=== PATIENT | female | born 1980 | race Caucasian/White ===

== ENCOUNTER 2017-05-26 10:54 | Emergency (ER) | payer OTHER ==
[2017-05-26 11:05] VITALS: BP 129/70; PULSE 82; O2SAT 98
--- NOTE | 2017-05-26 11:20 | ERPHSYRPT ---
- History of Present Illness Time Seen by Provider: 05/26/17 11:16 Historian: patient, family Exam Limitations: no limitations Patient Subjective Stated Complaint: PT REPORTS SHE HAD TEETH PULLED A COUPLE OF DAYS AGO-STATES THAT SHE TOOK A HYDROCODONE TABLET ET VOMITED-TOOK ONE YESTERDAY ET VOMITED-STATES THAT SHE HAS BEEN PUSHING FLUIDS Triage Nursing Assessment: PT PINK WARM ET [id number] ALL EXTREMITIES WITH EASE-RESP EASY ET NONLABORED AT THIS TIME-ABD NONTENDER TO PALP Physician History: 36-year-old female came to the emergency room with complaining of severe nausea and vomiting. Patient has a tooth pulled and was given hydrocodone which she too can started having a nausea and vomiting. She denies any other symptoms. Timing/Duration: today Associated Symptoms: nausea, vomiting Allergies/Adverse Reactions: penicillin G Allergy (Intermediate, Verified 05/26/17 11:11) Hives Home Medications: Hydrocodone Bit/Acetaminophen [[place] 5-325 Tablet] 1 each PO UD 05/26/17 [ History] Hx Tetanus, Diphtheria Vaccination/Date Given: No Hx Influenza Vaccination/Date Given: No Hx Pneumococcal Vaccination/Date Given: No Immunizations Up to Date: Yes - Review of Systems Constitutional: No Symptoms Eyes: No Symptoms Ears, Nose, & Throat: Mouth Swelling, Loose Teeth Respiratory: No Symptoms Cardiac: No Symptoms Abdominal/Gastrointestinal: Nausea, Vomiting Genitourinary Symptoms: No Symptoms Musculoskeletal: No Symptoms Neurological: No Symptoms - Past Medical History Pertinent Past Medical History: Yes Endocrine Medical History: Diabetes Type II Musculoskeletal History: Fibromyalgia Psycho-Social History: Bipolar, Depression Other Medical History: POLYCISTIC OVARY - Past Surgical History Past Surgical History: Yes Female Surgical History: Section, Tubal Ligation - Social History Smoking Status: Current every day smoker How long have you smoked: YRS Exposure to second hand smoke: Yes Drug Use: none Patient Lives Alone: No - Female History Hx Last Menstrual Period: LAST MONTH - Nursing Vital Signs Nursing Vital Signs: Initial Vital Signs Temperature 99.3 F 05/26/17 11:04 Pulse Rate 82 05/26/17 11:04 Respiratory Rate 20 05/26/17 11:04 Blood Pressure 129/70 05/26/17 11:04 O2 Sat by Pulse Oximetry 98 05/26/17 11:04 Pain Scale Pain Intensity 8 - Physical Exam General Appearance: no apparent distress Eye Exam: PERRL/EOMI Ears, Nose, Throat Exam: normal ENT inspection Neck Exam: normal inspection Respiratory Exam: normal breath sounds Cardiovascular Exam: regular rate/rhythm Gastrointestinal/Abdomen Exam: soft Back Exam: normal inspection Extremity Exam: normal inspection Neurologic Exam: alert, oriented x 3 SpO2: 98 Oxygen Delivery: Room Air - Course Nursing assessment & vital signs reviewed: Yes Ordered Tests: Active Orders 24 hr Category Date Time Status BMP Stat Lab 05/26/17 11:50 Received CBC W DIFF Stat Lab 05/26/17 11:50 Completed Medication Summary Generic Name Dose Route Start Last Admin Trade Name Freq PRN Reason Stop Dose Admin Sodium Chloride 1,000 mls @ 999 mls/hr 05/26/17 11:30 05/26/17 11:41 Sodium Chloride 0.9% 1000 Ml IV 05/26/17 12:30 999 mls/hr .Q1H1M STA Administration Ketorolac Tromethamine 30 mg 05/26/17 12:05 Toradol 30 Mg Injection IV 05/26/17 12:06 STAT ONE Discontinued Medications Generic Name Dose Route Start Last Admin Trade Name Freq PRN Reason Stop Dose Admin Sodium Chloride Confirm 05/26/17 11:37 Sodium Chloride 0.9% 1000 Ml Administered 05/26/17 11:38 Dose 1,000 mls @ ud .ROUTE .STK-MED ONE Ondansetron HCl 4 mg 05/26/17 11:30 05/26/17 11:41 Zofran 4 Mg/2 Ml Vial IV 05/26/17 11:31 4 mg STAT ONE Administration Ondansetron HCl Confirm 05/26/17 11:37 Zofran 4 Mg/2 Ml Vial Administered 05/26/17 11:38 Dose 4 mg .ROUTE .STK-MED ONE Lab/Rad Data: Laboratory Result Diagrams 05/26/17 11:50 Laboratory Results 05/26/17 Range/Units 11:50 WBC 9.0 (4.0-10.5) K/mm3 RBC 4.23 (4.1-5.4) M/mm3 Hgb 13.9 (12.0-16.0) gm/dl Hct 39.8 (35-47) % MCV 94.1 (78-100) fl MCH 32.9 H (26-32) pg MCHC 34.9 (32-36) g/dl RDW 12.0 (11.5-14.0) % Plt Count 235 (150-450) K/mm3 MPV 11.1 H (6-9.5) fl Gran % 81.6 H (36.0-66.0) % Lymphocytes % 9.2 L (24.0-44.0) % Monocytes % 7.0 (0.0-12.0) % Eosinophils % 2.0 (0.00-5.0) % Basophils % 0.2 (0.0-0.4) % Basophils # 0.02 (0-0.4) - Progress Progress: improved Counseled pt/family regarding: diagnosis, need for follow-up - Departure Time of Disposition: 12:07 Departure Disposition: Home Clinical Impression: Tooth abscess Condition: Stable Critical Care Time: No Referrals: MONICA NUNN MD [Primary Care Provider] - Instructions: Vomiting -- Adult Prescriptions: Clindamycin HCl 150 mg PO QID #30 capsule Naproxen 500 mg [Naprosyn 500 MG] 500 mg PO BIDAC #30 tablet
[2017-05-26] MEDS ORDERED: Sodium Chloride 0.9% 1000 ML 1,000 ML IV STA (11:30)
[2017-05-26] MEDS ORDERED: Zofran 4 MG/2 ML VIAL IV ONE (11:30)
[2017-05-26] MEDS ORDERED: Sodium Chloride 0.9% 1000 ML 1,000 ML ONE (11:37)
[2017-05-26] MEDS ORDERED: Zofran 4 MG/2 ML VIAL ONE (11:37)
[2017-05-26 11:53] LABS: BASOPHIL % 0.2 % (0.0-0.4); Granulocytes % 81.6 % (36.0-66.0); Lymphocytes % 9.2 % (24.0-44.0); Mean Cell Volume 94.1 fl (78-100); Mean Corpuscular Hemoglobin 32.9 pg (26-32); Mean Platelet Volume 11.1 fl (6-9.5); Platelet Count 235 K/mm3 (150-450); Red Blood Count 4.23 M/mm3 (4.1-5.4)
[2017-05-26] MEDS ORDERED: TORAdol 30 mg Injection IV ONE (12:05)
[2017-05-26] MEDS ORDERED: CLEOCIN 150 MG CAPSULE PO ONE (12:06)
[2017-05-26 12:08] LABS: ANION GAP 13.6 MEQ/L (5-15); BLOOD UREA NITROGEN 4 mg/dL (9-20); CHLORIDE 101 mEq/L (98-107); Carbon Dioxide 25.1 mEq/L (21-32); Glucose 100 MG/DL (70-110); Potassium 3.7 mEq/L (3.5-5.1); SODIUM 136 mEq/L (136-145)
[2017-05-26] MEDS ORDERED: TORAdol 30 mg Injection ONE (12:09)
[2017-05-26] MEDS ORDERED: CLEOCIN 150 MG CAPSULE ONE (12:10)
== END 2017-05-26 12:51 | disposition home or self-care (01) ==
LOC: ED 10:54
DX: K04.7 Periapical abscess without sinus (principal)
CPT/HCPCS: 36000; 36415; 80048; 85025; 96360; 96361; 96374; 96375; 99283; 99284; J1885; J2405; A9270-GY

== ENCOUNTER 2019-04-14 12:39 | Emergency (ER) | payer OTHER ==
[2019-04-14] MEDS ORDERED: DUONEB 0.5-3 MG/3 ml Neb IH ONE ×2 (13:06→13:23)
[2019-04-14 13:09] VITALS: O2SAT 98
--- NOTE | 2019-04-14 13:11 | ERPHSYRPT ---
- History of Present Illness Source: patient Exam Limitations: no limitations Patient Subjective Stated Complaint: pt reports cough congestion headache for 3 days. reports her daughter recently dx with bronchitis. Triage Nursing Assessment: pt is aox3, pupils perrl, afebrile, resps easy and non labored, pt lung sounds are clear posteriorly bilat, radial pulses strong and equal, cap refill < 3 seconds, pt skin pink warm dry. intermittent productive cough noted upon exam. Physician History: Patient has a cough and congestion for the past three days after having a sick contact with similar symptoms. Patient feels her chest is congested, and she is a smoker with asthma as a child. Timing/Duration: day(s) (3) Cough Quality/Degree: moderate, dry cough Possible Cause: frequent episodes, illness exposure Modifying Factors: Improves With: nothing Associated Symptoms: chest pain/soreness, cough, headache, nasal congestion, nasal drainage, sinus infection, wheezing, No fever, No chills, No dizziness, No earache, No facial pain, No lightheadedness, No muscle aches, No shortness of breath, No sore throat International travel in last 2 weeks: No Allergies/Adverse Reactions: penicillin G Allergy (Intermediate, Verified 04/14/19 13:09) Hives Home Medications: Hydrocodone Bit/Acetaminophen [[place] 5-325 Tablet] 1 each PO UD 05/26/17 [ History] Hx Tetanus, Diphtheria Vaccination/Date Given: Yes Hx Influenza Vaccination/Date Given: No Hx Pneumococcal Vaccination/Date Given: No Immunizations Up to Date: Yes - Review of Systems Constitutional: No Fever, No Chills Eyes: No Eye Pain, No Eye Redness, No Tearing Ears, Nose, & Throat: Nose Congestion, Nose Discharge, No Ear Pain, No Ear Discharge, No Epistaxis, No Mouth Pain, No Throat Pain, No Hoarse, No Painful Swallowing Respiratory: Cough, Wheezing, No Dyspnea, No Dyspnea on Exertion (MA) Cardiac: No Chest Pain, No Edema, No Syncope Abdominal/Gastrointestinal: No Abdominal Pain, No Nausea, No Vomiting, No Diarrhea Genitourinary Symptoms: No Dysuria Musculoskeletal: No Back Pain, No Neck Pain Skin: No Rash, No Skin Lesions Neurological: No Dizziness, No Focal Weakness, No Irritability, No Sensory Changes Psychological: No Symptoms Endocrine: No Symptoms Hematologic/Lymphatic: No Easy Bleeding, No Easy Bruising Immunological/Allergic: No Grass Allergy, No Pollen Allergy All Other Systems: Reviewed and Negative - Past Medical History Pertinent Past Medical History: Yes Neurological History: No Pertinent History Cardiac History: Arrhythmia Respiratory History: Asthma Endocrine Medical History: Diabetes Type II Musculoskeletal History: Arthritis Psycho-Social History: Bipolar, Depression Other Medical History: POLYCISTIC OVARY - Past Surgical History Past Surgical History: Yes Musculoskeletal: Orthopedic Surgery Female Surgical History: Dilation & Curettage, Section, Tubal Ligation , Other Other Surgical History: uterine ablation - Social History Smoking Status: Current every day smoker How long have you smoked: YRS Exposure to second hand smoke: Yes Drug Use: none Patient Lives Alone: No - Female History Hx Last Menstrual Period: ablation Hx Now: No - Nursing Vital Signs Nursing Vital Signs: Initial Vital Signs Temperature 98.6 F 04/14/19 12:58 Pulse Rate 81 04/14/19 12:58 Respiratory Rate 20 04/14/19 12:58 Blood Pressure 129/70 04/14/19 12:58 O2 Sat by Pulse Oximetry 96 04/14/19 12:58 Pain Scale Pain Intensity 2 - Physical Exam General Appearance: no apparent distress, alert Eye Exam: PERRL/EOMI, eyes nml inspection Ears, Nose, Throat Exam: normal ENT inspection, TMs normal, pharynx normal, moist mucous membranes Neck Exam: normal inspection, non-tender, supple, full range of motion, No meningismus, No Brudzinski, No Kernig's Respiratory Exam: normal breath sounds, airway intact, wheezing, No respiratory distress, No accessory muscle use, No prolonged expirations, No crackles/rales, No rhonchi, No stridor Cardiovascular Exam: regular rate/rhythm, normal heart sounds Gastrointestinal/Abdomen Exam: soft, No tenderness Back Exam: normal inspection, No CVA tenderness, No vertebral tenderness Extremity Exam: normal inspection, normal range of motion, No calf tenderness Neurologic Exam: alert, oriented x 3, cooperative, normal mood/affect, sensation nml, No motor deficits Skin Exam: normal color, warm, dry, No rash Lymphatic Exam: No adenopathy SpO2 Interpretation: normal SpO2: 98 O2 Delivery: Room Air Ordered Tests: Active Orders 24 hr Category Date Time Status Peak Expiratory Flow Rate ONCE RT 04/14/19 13:29 Completed Respiratory Therapy Assessment DAILY RT 04/14/19 13:29 Completed Medication Summary Discontinued Medications Generic Name Dose Route Start Last Admin Trade Name Sam PRN Reason Stop Dose Admin Albuterol/Ipratropium 3 ml 04/14/19 13:06 04/14/19 13:28 Duoneb 0.5-3 Mg/3 Ml Neb IH 04/14/19 13:07 3 ml STAT ONE Administration Albuterol/Ipratropium Confirm 04/14/19 13:23 Duoneb 0.5-3 Mg/3 Ml Neb Administered 04/14/19 13:24 Dose 3 ml IH .STK-MED ONE - Progress Progress: re-examined Air Movement: good Blood Culture(s) Obtained: No Antibiotics given: No Counseled pt/family regarding: diagnosis, need for follow-up, rad results, smoking cessation - Departure Departure Disposition: Home Clinical Impression: Acute upper respiratory infection, Elevated blood pressure reading without diagnosis of hypertension Acute bronchitis Qualifiers: Bronchitis organism: unspecified organism Qualified Code(s): J20.9 - Acute bronchitis, unspecified Condition: Good Critical Care Time: No Referrals: MONICA NUNN MD [Primary Care Provider] - Instructions: DASH Diet, Viral Upper Respiratory Infection, Adult (DC), Acute Bronchitis, Quitting Smoking Plan of Treatment: Recommend cessation of smoking Prescriptions: Albuterol Sulfate [Proair Hfa] 8.5 gm IH Q4H PRN PRN #1 [email or web address] PRN Reason: Wheezing/Chest Congestion Ipratropium Foley 2 spray NS Q8H PRN PRN #1 spray PRN Reason: Nasal Congestion/Rhinorrhea Promethazine/Dextromethorphan [Promethazine-Dm Solution] 5 ml PO Q6-8HPRN PRN # 90 ml PRN Reason: Cough Pseudoephedrine HCl [Sudafed 12 Hour] 120 mg PO BID #20 tablet.er
[2019-04-14 13:37] VITALS: PULSE 85
[2019-04-14 14:29] VITALS: BP 114/71
== END 2019-04-14 14:29 | disposition home or self-care (01) ==
LOC: ED 12:39
DX: J06.9 Acute upper respiratory infection, unspecified (principal); R03.0 Elevated blood-pressure reading, without diagnosis of hypertension; J20.9 Acute bronchitis, unspecified
CPT/HCPCS: 94150; 94640; 99284; A9270-GY

== ENCOUNTER 2020-10-27 11:39 | Day surgery (SDC) | payer OTHER ==
[2020-10-27] MEDS ORDERED: Lactated Ringers 1,000 ML IV ONE (11:40)
[2020-10-27] MEDS ORDERED: Xylocaine-Mpf 2% 5 Ml Vial IJ ONE (11:40)
[2020-10-27] MEDS ORDERED: Decadron 4 MG INJ IV ONE (11:40)
[2020-10-27] MEDS ORDERED: DIPRIVAN 200 MG/20 ML IV ONE (13:18)
[2020-10-27] MEDS ORDERED: Ketamine HCl 50 MG/ML ONE (13:18)
--- NOTE | 2020-10-27 14:14 | XRAY ---
Indication: Right C2-C4 MBB. Intraoperative fluoroscopy provided for 38 seconds. 2 digital spot images submitted for interpretation demonstrates posterior needle tips projecting over the expected right C2-C4 nerve roots. Correlate with intraoperative findings and report.
--- NOTE | 2020-10-27 14:26 | XRAY ---
38 seconds fluoroscopy time in surgery for right C2-C4 MBB.
== END 2020-10-27 13:56 | disposition home or self-care (01) ==
LOC: SDC-PAIN 11:39
PROVIDERS: ATTEND Psychiatry & Neurology Pain Medicine
DX: M47.812 Spondylosis without myelopathy or radiculopathy, cervical region (principal); M79.7 Fibromyalgia; J45.909 Unspecified asthma, uncomplicated; K21.9 Gastro-esophageal reflux disease without esophagitis; F41.8 Other specified anxiety disorders; G25.81 Restless legs syndrome; Z79.899 Other long term (current) drug therapy
CPT/HCPCS: 64490; 64491; 72020; 77002; 84703; J1100; J2704

== ENCOUNTER 2020-12-15 11:59 | Day surgery (SDC) | payer OTHER ==
[2020-12-15] MEDS ORDERED: BUPIVACAINE 0.5% VIAL IJ ONE (12:00)
--- NOTE | 2020-12-15 14:49 | XRAY ---
Indication: Right C2-C4 MBB. Intraoperative fluoroscopy provided for 18 seconds. 3 digital spot images submitted for interpretation demonstrates posterior needle tips projecting over the expected right C2-C4 nerve roots. Correlate with intraoperative findings/report.
--- NOTE | 2020-12-15 14:49 | XRAY ---
18 seconds fluoroscopy time in surgery for right C2-C4 MBB.
[2020-12-15] MEDS ORDERED: Lactated Ringers 1,000 ML IV ONE (16:05)
== END 2020-12-15 14:06 | disposition home or self-care (01) ==
LOC: SDC-PAIN 11:59
PROVIDERS: ATTEND Psychiatry & Neurology Pain Medicine
DX: M47.812 Spondylosis without myelopathy or radiculopathy, cervical region (principal); D64.9 Anemia, unspecified; M79.7 Fibromyalgia; J45.909 Unspecified asthma, uncomplicated; M19.90 Unspecified osteoarthritis, unspecified site; K21.9 Gastro-esophageal reflux disease without esophagitis; F41.9 Anxiety disorder, unspecified; F32.9 Major depressive disorder, single episode, unspecified; Z79.899 Other long term (current) drug therapy
CPT/HCPCS: 72040; 77002; 84703

== ENCOUNTER 2021-01-26 11:31 | Day surgery (SDC) | payer OTHER ==
[2021-01-26] MEDS ORDERED: BUPIVACAINE 0.5% VIAL IJ ONE (11:32)
[2021-01-26] MEDS ORDERED: Decadron 4 MG INJ IV ONE (11:32)
[2021-01-26] MEDS ORDERED: Xylocaine 1% Vial 30 ML PF IJ ONE (11:32)
[2021-01-26] MEDS ORDERED: DIPRIVAN 200 MG/20 ML IV ONE ×2 (12:27→12:41)
--- NOTE | 2021-01-26 15:18 | XRAY ---
Indication: Right C2-C4 RFA. Intraoperative fluoroscopy provided for 29 seconds. 2 digital spot images submitted for interpretation demonstrates posterior needle tip projecting over the expected right C2-C4 nerve roots. Correlate with intraoperative findings/report.
--- NOTE | 2021-01-26 15:20 | XRAY ---
29 seconds of fluoroscopy was used surgery for a right C2-C3, C3-C4 RFA.
[2021-01-26] MEDS ORDERED: Lactated Ringers 1,000 ML IV ONE (16:03)
== END 2021-01-26 13:06 | disposition home or self-care (01) ==
LOC: SDC-PAIN 11:31
PROVIDERS: ATTEND Psychiatry & Neurology Pain Medicine
DX: M47.812 Spondylosis without myelopathy or radiculopathy, cervical region (principal); D64.9 Anemia, unspecified; F41.9 Anxiety disorder, unspecified; F32.9 Major depressive disorder, single episode, unspecified; I49.8 Other specified cardiac arrhythmias; M19.90 Unspecified osteoarthritis, unspecified site; M79.7 Fibromyalgia; J45.909 Unspecified asthma, uncomplicated; K21.9 Gastro-esophageal reflux disease without esophagitis; G25.81 Restless legs syndrome; Z79.899 Other long term (current) drug therapy
CPT/HCPCS: 64633; 64634; 72040; 77002; 84703; J1100; J2001; J2704

== ENCOUNTER 2021-02-07 16:42 | Emergency (ER) | payer OTHER ==
--- NOTE | 2021-02-07 16:51 | ERPHSYRPT ---
- History of Present Illness Time Seen by Provider: 02/07/21 16:50 Source: patient, family Exam Limitations: no limitations Physician History: This is a 40-year-old white female who has chronic neck pain issues. She also has chronic intermittent dizziness as well as chronic tingling in the right upper extremity. Patient has a pain specialist, Dr. Perez. She had an appointment with him on 01/26/2021 and underwent an injection of steroids into her cervical spine to help with pain control. Since that visit, she states that her symptoms of headache, dizziness and right upper extremity tingling sensation was a little worse. She followed up with Dr. Perez's office today thinking that she had an appointment. However, her appointment is tomorrow. Because of her symptoms, she was sent to the emergency department for evaluation. Patient drove herself. Patient stated that she did not need any pain medication here in the emergency department. She has plenty of pain medicine at home. Timing/Duration: gradual onset, worse, other (Chronic symptoms) Severity: mild Associated Symptoms: headaches Allergies/Adverse Reactions: penicillin G Allergy (Intermediate, Verified 04/14/19 13:09) Hives Home Medications: Hydrocodone Bit/Acetaminophen [[place] 5-325 Tablet] 1 each PO UD 05/26/17 [History] Dicyclomine HCl 20 mg [Bentyl 20 mg] 20 mg PO DAILY 02/07/21 [History] Hydroxyzine HCl 10 mg PO DAILY 02/07/21 [History] Omeprazole 20 mg PO DAILY 02/07/21 [History] Topiramate [Trokendi Xr] 100 mg PO DAILY 02/07/21 [History] Venlafaxine HCl ER 75 mg [Effexor XR 75 MG] 75 mg PO DAILY 02/07/21 [History] Venlafaxine HCl [Venlafaxine HCl ER] 150 mg PO DAILY 02/07/21 [History] Hx Tetanus, Diphtheria Vaccination/Date Given: Yes Hx Influenza Vaccination/Date Given: No Hx Pneumococcal Vaccination/Date Given: No Travel Risk - International Travel Have you traveled outside of the country in past 3 weeks: No - Coronavirus Screening Are you exhibiting any of the following symptoms?: No Close contact with a COVID-19 positive Pt in past 14-21 Days: No - Review of Systems Constitutional: No Symptoms Eyes: No Symptoms Ears, Nose, & Throat: No Symptoms Respiratory: No Symptoms Cardiac: No Symptoms Abdominal/Gastrointestinal: No Symptoms Genitourinary Symptoms: No Symptoms Musculoskeletal: Neck Pain Skin: No Symptoms Neurological: Parasthesia (Right upper extremity) Psychological: No Symptoms Endocrine: No Symptoms Hematologic/Lymphatic: No Symptoms Immunological/Allergic: No Symptoms All Other Systems: Reviewed and Negative - Past Medical History Pertinent Past Medical History: Yes Neurological History: No Pertinent History Cardiac History: Arrhythmia Respiratory History: Asthma Endocrine Medical History: Diabetes Type II Musculoskeletal History: Arthritis Psycho-Social History: Bipolar, Depression Other Medical History: POLYCISTIC OVARY - Past Surgical History Past Surgical History: Yes Musculoskeletal: Orthopedic Surgery Female Surgical History: Dilation & Curettage, Section, Tubal Ligation, Other Other Surgical History: uterine ablation - Social History Smoking Status: Current every day smoker How long have you smoked: YRS Exposure to second hand smoke: Yes Drug Use: none Patient Lives Alone: No - Nursing Vital Signs Nursing Vital Signs: Initial Vital Signs Temperature 98.2 F 02/07/21 16:48 Pulse Rate 99 H 02/07/21 16:48 Respiratory Rate 20 02/07/21 16:48 Blood Pressure 136/90 02/07/21 16:48 O2 Sat by Pulse Oximetry 98 02/07/21 16:48 Pain Scale Pain Intensity 4 - Physical Exam General Appearance: no apparent distress, alert, anxiety Eye Exam: PERRL/EOMI, eyes nml inspection Ears, Nose, Throat Exam: normal ENT inspection, moist mucous membranes Neck Exam: normal inspection, supple, full range of motion, other (Tenderness right cervical spine region no evidence of any redness or signs of infection) Respiratory Exam: airway intact, No chest tenderness, No respiratory distress Gastrointestinal/Abdomen Exam: No tenderness Pelvic Exam: not done Rectal Exam: not done Back Exam: normal inspection, normal range of motion, No CVA tenderness, No vertebral tenderness Extremity Exam: normal inspection, normal range of motion, pelvis stable, parasthesia Neurologic Exam: alert (Extremity), oriented x 3, cooperative, components engineer II-XII nml as tested, normal mood/affect, nml cerebellar function, nml station & gait, sensation nml, No motor deficits, No sensory deficit, No disoriented, No confusion, No agitation Skin Exam: normal color, warm, dry Lymphatic Exam: No adenopathy SpO2 Interpretation: normal O2 Delivery: Room Air - Course Nursing assessment & vital signs reviewed: Yes Ordered Tests: Active Orders 24 hr Category Date Time Status CERVICAL SPINE WO CONTRAST [CT] Stat Exams 02/07/21 17:26 Taken HEAD WITHOUT CONTRAST [CT] Stat Exams 02/07/21 17:25 Taken - Progress Progress: unchanged, pain not gone completely, re-examined Progress Note: 02/07/21 18:21 This CAT scan of the head without contrast shows a normal CAT scan of the head compared to an MRI of the brain which was performed on 09/16/2020. CAT scan of the cervical spine without contrast when compared to MRI of the cervical spine on 09/16/2020 shows no new or acute findings. Counseled pt/family regarding: diagnosis, need for follow-up, rad results - Departure Departure Disposition: Home Clinical Impression: Headache, Paresthesias in right hand, Cervical spine pain Condition: Stable Critical Care Time: No Referrals: MONICA NUNN MD [Primary Care Provider] - Additional Instructions: Continue your medication as prescribed. Follow-up with Dr. Perez tomorrow at your scheduled appointment time.
[2021-02-07 18:15] VITALS: PULSE 96
[2021-02-07 18:51] VITALS: BP 137/84; O2SAT 97
--- NOTE | 2021-02-08 08:38 | XRAY ---
Indication: Right head/neck tingling. Headache. Multiple contiguous axial images obtained through the head cervical spine. Sagittal and coronal reformatted images obtained. Comparison: None. There is MRI cervical spine September 16, 2020. Axial images negative for acute fracture, suspicious bony lesions, or spinal canal stenosis. Mild broad-based C5-C6 disc osteophyte complex encroaches on the spinal canal. Facets are symmetric. Sagittal and coronal reformatted images demonstrates lordotic reversal, positional versus paraspinal spasm. C5-C6 disc space narrowing. No acute compression fracture, subluxation, or jumped facet. Normal appearing craniocervical junction. Right upper lobe calcified granuloma. Remaining visualized noncontrasted soft tissues unremarkable. Impression: 1. C5-C6 broad-based disc osteophyte complex grossly similar in appearance to MRI cervical spine. 2. Cervical lordotic reversal, positional versus paraspinal spasm.
--- NOTE | 2021-02-08 08:41 | XRAY ---
Indication: Right head/neck tingling. Headache. Multiple contiguous axial images obtained through the head without contrast. Comparison: None. There is MRI brain September 16, 2020. Normal appearing brain parenchyma, ventricles, and bony calvarium. Visualized paranasal sinuses and mastoid air cells are clear. Impression: Normal CT head without contrast exam.
== END 2021-02-07 18:47 | disposition home or self-care (01) ==
LOC: ED 16:42
DX: R51.9 Headache, unspecified (principal); R20.2 Paresthesia of skin; M54.2 Cervicalgia; R42 Dizziness and giddiness; Z79.899 Other long term (current) drug therapy; E11.9 Type 2 diabetes mellitus without complications; F31.9 Bipolar disorder, unspecified
CPT/HCPCS: 70450; 72125; 99283

== ENCOUNTER 2023-09-09 12:58 | Observation (INO) | payer OTHER ==
--- NOTE | 2023-09-09 13:15 | ERPHSYRPT ---
- History of Present Illness Time Seen by Provider: 09/09/23 13:04 Source: patient Patient Subjective Stated Complaint: PT states "I have pain in my left foot and ankle, it just started and goes all the way up to my left hip. It felt like my foot fell asleep and now it just hurts." Triage Nursing Assessment: PT presented alert and oriented X 3, skin pwd. Pt able to speak in clear full sentences. Pt able to move all extremities, left foot swollen and warm extremely tender. Physician History: 43yo f presents for left foot pain that started last night while she was walking around her house. Pt states the pain has worsened and she now is having pain in the left knee and left hip. Pt also believes her left foot is swollen compared to her right. Pt denies any recent trauma to the area, denies any hx of blood clots, denies any recent falls. Pt has reported hx of fibromyalgia and takes oxycodone for pain. Method of Injury: other (no known injury) Occurred: yesterday Quality: constant, burning, throbbing Severity of Pain-Max: moderate Severity of Pain-Current: mild Lower Extremities Pain: hip: left, leg: left, foot: left, ankle: left Modifying Factors: Improves With: nothing Associated Symptoms: unable to bear weight Allergies/Adverse Reactions: penicillin G Allergy (Intermediate, Verified 04/14/19 13:09) Hives adhesive tape Allergy (Verified 04/15/21 10:26) tramadol Allergy (Verified 04/15/21 10:26) Home Medications: Hydrocodone/Acetaminophen [[place] 5-325 Tablet] 1 each PO UD 05/26/17 [History] Dicyclomine HCl 20 mg [Bentyl 20 mg] 20 mg PO DAILY 02/07/21 [History] Venlafaxine HCl ER 75 mg [Effexor XR 75 MG] 75 mg PO DAILY 02/07/21 [History] Venlafaxine HCl [Venlafaxine HCl ER] 150 mg PO DAILY 02/07/21 [History] hydrOXYzine HCL [Hydroxyzine HCl] 10 mg PO DAILY 02/07/21 [History] Atorvastatin Calcium 10 mg PO DAILY 04/15/21 [History] Ergocalciferol (Vitamin D2) [Vitamin D2] 1 cap PO DAILY 04/15/21 [History] Buprenorphine HCl [Belbuca] 150 mcg BC BID 09/09/23 [History] Tizanidine HCl 4 mg [Zanaflex 4 MG] 4 mg PO DAILY 09/09/23 [History] Topiramate 100 mg PO DAILY 09/09/23 [History] Hx Tetanus, Diphtheria Vaccination/Date Given: Yes Hx Influenza Vaccination/Date Given: No Hx Pneumococcal Vaccination/Date Given: No Immunizations Up to Date: No Travel Risk - International Travel Have you traveled outside of the country in past 3 weeks: No - Coronavirus Screening Are you exhibiting any of the following symptoms?: No Close contact with a COVID-19 positive Pt in past 14-21 Days: No - Vaccine Status Have you recieved a Covid-19 vaccination: No - Review of Systems Constitutional: No Symptoms Ears, Nose, & Throat: No Symptoms Respiratory: No Symptoms Cardiac: No Symptoms Abdominal/Gastrointestinal: No Symptoms Musculoskeletal: Arthralgias, Joint Pain, Myalgias Skin: No Symptoms - Past Medical History Pertinent Past Medical History: Yes Neurological History: No Pertinent History ENT History: No Pertinent History Cardiac History: Arrhythmia Respiratory History: Asthma Endocrine Medical History: Diabetes Type II Musculoskeletal History: Arthritis GI Medical History: Irritable Bowel History: No Pertinent History Psycho-Social History: Bipolar, Depression Female Reproductive Disorders: No Pertinent History Other Medical History: POLYCISTIC OVARY - Past Surgical History Past Surgical History: Yes Neuro Surgical History: No Pertinent History Cardiac: No Pertinent History Respiratory: No Pertinent History Gastrointestinal: No Pertinent History Musculoskeletal: Orthopedic Surgery Female Surgical History: Dilation & Curettage, Section, Tubal Ligation, Other Other Surgical History: right shoulder muscle surgery, uterine ablation - Social History Smoking Status: Current every day smoker How long have you smoked: YRS Exposure to second hand smoke: Yes Drug Use: none Patient Lives Alone: No - Female History Hx Last Menstrual Period: tubal and ablsion Hx Now: No - Nursing Vital Signs Nursing Vital Signs: Initial Vital Signs Temperature 98.0 F 09/09/23 12:59 Pulse Rate 74 09/09/23 12:59 Respiratory Rate 18 09/09/23 12:59 Blood Pressure 147/90 09/09/23 12:59 O2 Sat by Pulse Oximetry 98 09/09/23 12:59 Pain Scale Pain Intensity 6 - Physical Exam General Appearance: no apparent distress, alert Cardiovascular/Respiratory Exam: normal breath sounds, regular rate/rhythm, heart sounds normal Gastrointestinal/Abdominal Exam: non-tender, soft Hips Exam: left: pain, soft tissue tenderness, bilateral: no evidence of injury, limited range of motion (2/2 pain) Legs Exam: left leg: limited range of motion (2/2 pain), pain, soft tissue tenderness, bilateral leg: normal inspection, no evidence of injury Knees Exam: bilateral knee: non-tender, normal inspection, no evidence of injury Ankle Exam: left ankle: bone tenderness, limited range of motion, pain, soft tissue tenderness Foot Exam: left foot: limited range of motion, pain, soft tissue tenderness, swelling (mild) Neuro/Tendon Exam: normal sensation, normal motor functions, No motor deficit, No sensory deficit Mental Status Exam: alert, oriented x 3, cooperative SpO2 Interpretation: normal SpO2: 98 O2 Delivery: Room Air Ordered Tests: Active Orders 24 hr Category Date Time Status ANKLE (3 VIEWS) Stat Exams 09/09/23 13:04 Taken FEMUR Stat Exams 09/09/23 13:04 Taken FOOT (MINIMUM 3 VIEWS) Stat Exams 09/09/23 13:04 Taken HIP UNI (2V) INCL PEL IF DONE Stat Exams 09/09/23 13:04 Taken KNEE (1 OR 2 VIEW) Stat Exams 09/09/23 13:04 Taken LOWER LEG Stat Exams 09/09/23 13:05 Taken CBC W DIFF Stat Lab 09/09/23 14:26 Completed CMP Stat Lab 09/09/23 14:26 Completed D-DIMER QUANTITATIVE Stat Lab 09/09/23 14:26 Completed TROPONIN Q4H Lab 09/09/23 14:26 Completed TROPONIN Q4H Lab 09/09/23 18:30 Ordered TROPONIN Q4H Lab 09/09/23 22:30 Ordered Medication Summary Discontinued Medications Generic Name Dose Route Start Last Admin Trade Name Freq PRN Reason Stop Dose Admin Oxycodone HCl 5 mg 09/09/23 13:39 09/09/23 13:51 Oxycodone Hcl 5 Mg Ir Tab PO 09/09/23 13:40 5 mg ONCE ONE Administration Lab/Rad Data: Laboratory Result Diagrams 09/09/23 14:26 09/09/23 14:26 Laboratory Results 09/09/23 09/09/23 09/09/23 Range/Units 14:26 14:26 14:26 WBC 6.6 (4.0-10.5) x10^3/uL RBC 4.34 (4.1-5.4) x10^6/uL Hgb 14.2 (12.0-16.0) g/dL Hct 42.2 (35-47) % MCV 97.2 (78-100) fL MCH 32.7 H (26-32) pg MCHC 33.6 (32-36) g/dL RDW 12.4 (11.5-14.0) % Plt Count 231 (150-450) x10^3/uL MPV 11.1 H (7.5-11.0) fL Gran % 64.9 (36.0-66.0) % Immature Gran % (Auto) 0.3 (0.00-0.4) % Nucleat RBC Rel Count 0.0 (0.00-0.1) % Eos # (Auto) 0.06 (0-0.5) x10^3/uL Immature Gran # (Auto) 0.02 (0.00-0.03) x10^3u/L Absolute Lymphs (auto) 1.55 (1.0-4.6) x10^3/uL Absolute Monos (auto) 0.61 (0.0-1.3) x10^3/uL Absolute Nucleated RBC 0.00 (0.00-0.01) x10^3u/L Lymphocytes % 23.5 L (24.0-44.0) % Monocytes % 9.2 (0.0-12.0) % Eosinophils % 0.9 (0.00-5.0) % Basophils % 1.2 (0.0-0.4) % Absolute Granulocytes 4.28 (1.4-6.9) x10^3/uL Basophils # 0.08 (0-0.4) x10^3/uL D-Dimer < 0.19 (0.0-0.50) mg/L Sodium 135 L (137-145) mmol/L Potassium 3.8 (3.5-5.1) mmol/L Chloride 107 (98-107) mmol/L Carbon Dioxide 22 (22-30) mmol/L Anion Gap 10.2 (5-15) MEQ/L BUN 7 (7-17) mg/dL Creatinine 0.61 (0.52-1.04) mg/dL Estimated GFR 113.7 ML/MIN Glucose 105 (74-106) mg/dL Calcium 9.0 (8.4-10.2) mg/dL Total Bilirubin 0.80 (0.2-1.3) mg/dL AST 18 (14-36) U/L ALT 12 (0-35) U/L Alkaline Phosphatase 64 (38-126) U/L Troponin I 0.012 (0.000-0.034) ng/mL Serum Total Protein 7.0 (6.3-8.2) g/dL Albumin 4.2 (3.5-5.0) g/dL - Progress Progress: pain not gone completely Progress Note: 09/09/23 13:38 pt had significant pain while in radiology - given 5mg PO oxycodone 09/09/23 15:25 xray imaging negative for acute fracture of LLE or hip some OA of left hip present, moderate chronic osseous deformity of left foot metatarsals d dimer, trops negative, low concern for cardiac or hematologic issue pt likely has strain vs sprain of left foot/ankle pt is adamant that she is unable to ambulate at all, cannot bear any weight on left extremity pt reports she has no upper body strength because "her muscles are deteriorating" and she cannot use crutches pt lives at home alone and has no one to help her get around, does not feel like she can safely go home 09/09/23 15:29 Discussed admission w/ hospitalist Dr Mishra as pt is not a safe discharge due to deconditioning and overall weakness, he agrees to admit for obs Will see patient in: hospital (observation) Counseled pt/family regarding: lab results, diagnosis, need for follow-up, rad results Medical Desision Making - Diagnostic Testing Diagnostic test were ordered, analyzed, and reviewed by me: Yes Radiological Interpretation: Interpreted by me, Reviewed by me - Risk of complications Low Risk: Low risk of morbidity from additional dx testing or treatment - Departure Departure Disposition: Observation Clinical Impression: Physical deconditioning, Weakness Sprain of left foot Qualifiers: Encounter type: initial encounter Qualified Code(s): S93.602A - Unspecified sprain of left foot, initial encounter Condition: Stable Critical Care Time: No Referrals: MONICA NUNN MD [Primary Care Provider] - Follow up/PCP as directed
[2023-09-09] MEDS ORDERED: Oxy-IR 5 MG PO ONE (13:39)
[2023-09-09 14:45] LABS: Absolute Neutrophil Ct (ANC) 4.28 x10^3/uL (1.4-6.9); BASOPHIL % 1.2 % (0.0-0.4); Basophil (Absolute #) 0.08 x10^3/uL (0-0.4); Eosinophil % 0.9 % (0.00-5.0); Eosinophil (Absolute #) 0.06 x10^3/uL (0-0.5); Hematocrit 42.2 % (35-47); Hemoglobin 14.2 g/dL (12.0-16.0); IMMATURE GRAN # 0.02 x10^3u/L (0.00-0.03); IMMATURE GRAN % 0.3 % (0.00-0.4); Lymphocyte (Absolute #) 1.55 x10^3/uL (1.0-4.6); Lymphocytes % 23.5 % (24.0-44.0); Mean Cell Volume 97.2 fL (78-100); Mean Corpuscular Hemoglobin 32.7 pg (26-32); Mean Corpuscular Hgb Concent. 33.6 g/dL (32-36); Mean Platelet Volume 11.1 fL (7.5-11.0); Monocyte (Absolute #) 0.61 x10^3/uL (0.0-1.3); Monocytes % 9.2 % (0.0-12.0); Neutrophil % 64.9 % (36.0-66.0); Platelet Count 231 x10^3/uL (150-450); Red Blood Count 4.34 x10^6/uL (4.1-5.4); Red Cell Distribution Width 12.4 % (11.5-14.0); White Blood Count 6.6 x10^3/uL (4.0-10.5)
[2023-09-09 15:10] LABS: ALBUMIN 4.2 g/dL (3.5-5.0); ANION GAP 10.2 MEQ/L (5-15); BILIRUBIN,TOTAL 0.8 mg/dL (0.2-1.3); Creatinine 1 0.61 mg/dL (0.52-1.04); EST GLOMERULAR FILTRATION RATE 113.7 ML/MIN; Potassium 3.8 mmol/L (3.5-5.1); TROPONIN 0.012 ng/mL (0.000-0.034)
[2023-09-09] MEDS ORDERED: HUMALOG SQ PRN (16:45)
[2023-09-09] MEDS ORDERED: TORAdol 30 mg Injection IV PRN (16:45)
[2023-09-09] MEDS ORDERED: TYLENOL 325 MG PO PRN (16:45)
[2023-09-09] MEDS ORDERED: Zofran 4 MG/2 ML VIAL IV PRN (16:45)
--- NOTE | 2023-09-09 16:45 | PCM.HP ---
History of Present Illness - Chief Complaint Chief Complaint: weakness Date: 09/09/23 History of Present Illness: Ms. Milian is a 43 year old female with pmhx of DMII controlled by diet, arthritis,HLD, migraines, HTN, PCOS, and bipolar/depression who presented to ED 09/09/23 with complaints of left ankle pain starting last night. Patient states she noticed a numbness/tingling sensation the left foot that became more intense as the night went on. Pain is constant with pressure/ambulation, throbbing/stabbing/burning in characteristic, and radiates to her left knee and hip. Patient states she is unable to bear weight. Aggravating factors include ambulation/pressure. Pain is relieved at rest and with pain medications. Imaging performed in ED with no acute fracture. Lab findings unremarkable. Patient requesting Ortho consultation. - Review of Systems Constitutional: No Symptoms Eyes: No Symptoms Ears, Nose, & Throat: No Symptoms Respiratory: No Symptoms Cardiac: No Symptoms Abdominal/Gastrointestinal: Nausea, Vomiting (with pain) Genitourinary Symptoms: No Symptoms Musculoskeletal: Joint Pain Skin: No Symptoms Neurological: Sensory Changes (n/t LLE) Endocrine: No Symptoms Hematologic/Lymphatic: No Symptoms Immunological/Allergic: No Symptoms Medications & Allergies Home Medications: Home Medication List Venlafaxine HCl [Venlafaxine HCl ER] 150 mg PO HS 02/07/21 [History Confirmed 09/09/23] hydrOXYzine HCL [Hydroxyzine HCl] 10 mg PO BID 02/07/21 [History Confirmed 09/09] Atorvastatin Calcium 10 mg PO HS 04/15/21 [History Confirmed 09/09/23] Ergocalciferol (Vitamin D2) [Vitamin D2] 1 cap PO DAILY 04/15/21 [History Confirmed 09/09/23] Oxycodone HCl 5 mg Ir [Oxy-IR 5 MG] 5 mg PO TID PRN 09/09/23 [History Confirmed 09/09/23] Tizanidine HCl 4 mg [Zanaflex 4 MG] 4 mg PO DAILY PRN 09/09/23 [History Confirmed 09/09/23] Tizanidine HCl 4 mg [Zanaflex 4 MG] 8 mg PO HS 09/09/23 [History Confirmed 09/09/23] Topiramate 100 mg PO BID 09/09/23 [History Confirmed 09/09/23] Allergies/Adverse Reactions: Allergies Allergy/AdvReac Type Severity Reaction Status Date / Time penicillin G Allergy Intermediate Hives Verified 09/09/23 16:48 adhesive tape Allergy Verified 09/09/23 16:48 tramadol Allergy Verified 09/09/23 16:48 - Past Medical History Past Medical History: Yes Neurological History: No Pertinent History ENT History: No Pertinent History Cardiac History: Arrhythmia Respiratory History: Asthma Endocrine Medical History: Diabetes Type II Musculoskelatal History: Arthritis GI Medical History: Irritable Bowel History: No Pertinent History Pyscho-Social History: Bipolar, Depression Reproductive Disorders: No Pertinent History Comment: POLYCISTIC OVARY - Female History Hx Last Menstrual Period: tubal and ablsion Are you now?: No - Past Surgical History Past Surgical History: Yes Neuro Surgical History: No Pertinent History Cardiac History: No Pertinent History Respiratory Surgery: No Pertinent History GI Surgical History: No Pertinent History Musculskeletal Surgical Hx: Orthopedic Surgery Female Surgical History: Dilation & Curettage, Section, Tubal Ligation, Other Other Surgical History: right shoulder muscle surgery, uterine ablation - Social History Smoking Status: Current every day smoker How long have you smoked: YRS Exposure to second hand smoke: Yes Alcohol: None Drug Use: none - Physical Exam Vital Signs: Vital Signs - 24 hr Temp Pulse Resp BP BP Pulse Ox 09/09/23 16:04 97.6 F 88 20 136/88 98 09/09/23 15:41 98 09/09/23 13:12 67 118/78 98 09/09/23 13:00 147/90 96 09/09/23 12:59 98.0 F 74 18 147/90 98 General Appearance: no apparent distress Neurologic Exam: alert, oriented x 3, cooperative Eye Exam: PERRL/EOMI Ears, Nose, Throat Exam: normal ENT inspection Neck Exam: normal inspection Respiratory Exam: normal breath sounds, lungs clear Cardiovascular Exam: regular rate/rhythm, normal heart sounds Pelvic Exam: not done Rectal Exam: deferred Back Exam: normal inspection Extremity Exam: normal inspection, joint swelling (mild swelling to left ankle) Skin Exam: normal color Results - Labs Lab/Micro Results: Lab Results-Last 24 Hours 09/09/23 09/09/23 09/09/23 Range/Units 14:26 14:26 14:26 WBC 6.6 (4.0-10.5) x10^3/uL RBC 4.34 (4.1-5.4) x10^6/uL Hgb 14.2 (12.0-16.0) g/dL Hct 42.2 (35-47) % MCV 97.2 (78-100) fL MCH 32.7 H (26-32) pg MCHC 33.6 (32-36) g/dL RDW 12.4 (11.5-14.0) % Plt Count 231 (150-450) x10^3/uL MPV 11.1 H (7.5-11.0) fL Gran % 64.9 (36.0-66.0) % Immature Gran % (Auto) 0.3 (0.00-0.4) % Nucleat RBC Rel Count 0.0 (0.00-0.1) % Eos # (Auto) 0.06 (0-0.5) x10^3/uL Immature Gran # (Auto) 0.02 (0.00-0.03) x10^3u/L Absolute Lymphs (auto) 1.55 (1.0-4.6) x10^3/uL Absolute Monos (auto) 0.61 (0.0-1.3) x10^3/uL Absolute Nucleated RBC 0.00 (0.00-0.01) x10^3u/L Lymphocytes % 23.5 L (24.0-44.0) % Monocytes % 9.2 (0.0-12.0) % Eosinophils % 0.9 (0.00-5.0) % Basophils % 1.2 (0.0-0.4) % Absolute Granulocytes 4.28 (1.4-6.9) x10^3/uL Basophils # 0.08 (0-0.4) x10^3/uL D-Dimer < 0.19 (0.0-0.50) mg/L Sodium 135 L (137-145) mmol/L Potassium 3.8 (3.5-5.1) mmol/L Chloride 107 (98-107) mmol/L Carbon Dioxide 22 (22-30) mmol/L Anion Gap 10.2 (5-15) MEQ/L BUN 7 (7-17) mg/dL Creatinine 0.61 (0.52-1.04) mg/dL Estimated GFR 113.7 ML/MIN Glucose 105 (74-106) mg/dL Calcium 9.0 (8.4-10.2) mg/dL Total Bilirubin 0.80 (0.2-1.3) mg/dL AST 18 (14-36) U/L ALT 12 (0-35) U/L Alkaline Phosphatase 64 (38-126) U/L Troponin I 0.012 (0.000-0.034) ng/mL Serum Total Protein 7.0 (6.3-8.2) g/dL Albumin 4.2 (3.5-5.0) g/dL - Radiology Impressions Radiology Exams & Impressions: Radiology Procedures Category Date Time Status ANKLE (3 VIEWS) Stat Exams 09/09/23 13:04 Taken FEMUR Stat Exams 09/09/23 13:04 Taken FOOT (MINIMUM 3 VIEWS) Stat Exams 09/09/23 13:04 Taken HIP UNI (2V) INCL PEL IF DONE Stat Exams 09/09/23 13:04 Taken KNEE (1 OR 2 VIEW) Stat Exams 09/09/23 13:04 Taken LOWER LEG Stat Exams 09/09/23 13:05 Taken Assessment/Plan (1) Sprain of left foot Current Visit: Yes Status: Acute Qualifiers: Encounter type: initial encounter Qualified Code(s): S93.602A - Unspecified sprain of left foot, initial encounter Assessment & Plan: -local cold therapy - patient declines states it makes her pain worse -Rest/elevation -PT -NSAID -pt declines, would like to take her home pain medications -Ortho consult Code(s): S93.602A - UNSPECIFIED SPRAIN OF LEFT FOOT, INITIAL ENCOUNTER (2) Diabetes mellitus Current Visit: Yes Status: Acute Assessment & Plan: -Controlled by diet -Will monitor while IP Code(s): E11.9 - TYPE 2 DIABETES MELLITUS WITHOUT COMPLICATIONS (3) Physical deconditioning Current Visit: Yes Status: Acute Assessment & Plan: -PT/OT Code(s): R53.81 - OTHER MALAISE (4) HTN (hypertension) Current Visit: Yes Status: Acute Assessment & Plan: -continue home medications Code(s): I10 - ESSENTIAL (PRIMARY) HYPERTENSION
[2023-09-09] MEDS ORDERED: Zanaflex 4 MG PO PRN (17:45)
[2023-09-09] MEDS ORDERED: Oxy-IR 5 MG PO PRN (17:45)
[2023-09-09] MEDS ORDERED: DELTASONE 20 MG PO ONE (18:20)
--- NOTE | 2023-09-09 19:25 | XRAY ---
Indication: Left leg pain. Comparison: None AP pelvis and 2 view left hip obtained. No bony, articular, or soft tissue abnormalities.
--- NOTE | 2023-09-09 19:25 | XRAY ---
Indication: Left leg pain. Comparison: None 2 view left knee demonstrates minimal tricompartmental degenerative changes. No other bony, articular, or soft tissue abnormalities.
--- NOTE | 2023-09-09 19:25 | XRAY ---
Indication: Left leg pain. Comparison: None 2 view left femur obtained. No bony, articular, or soft tissue abnormalities.
--- NOTE | 2023-09-09 19:27 | XRAY ---
Indication: Left leg pain. Comparison: None 3 view left ankle demonstrates tiny posterior/plantar heel spurs. No other bony, articular, or soft tissue abnormalities.
--- NOTE | 2023-09-09 19:27 | XRAY ---
Indication: Left leg pain. Comparison: None 2 view left lower leg obtained. No bony, articular, or soft tissue abnormalities.
--- NOTE | 2023-09-09 19:29 | XRAY ---
Indication: Left leg pain. Comparison: None 3 nonweightbearing views left foot demonstrates mild 1st MTP bunion deformity, tiny posterior/plantar heel spurs, and tiny navicular accessory ossicle. No other bony, articular, or soft tissue abnormalities.
[2023-09-09] MEDS ORDERED: NON-FORMULARY ITEM (Venlafaxine Hcl [Venlafaxine Hcl Er] 150 MG Cap.Er.24h) PO SCH (22:00)
[2023-09-09] MEDS ORDERED: Zocor 10MG PO SCH (22:00)
[2023-09-09] MEDS ORDERED: NON-FORMULARY ITEM (Hydroxyzine Hcl [Hydroxyzine Hcl] 10 MG Tablet) PO SCH (22:00)
[2023-09-09] MEDS ORDERED: NON-FORMULARY ITEM (Atorvastatin Calcium [Atorvastatin Calcium] 10 MG Tablet) PO SCH (22:00)
[2023-09-09] MEDS ORDERED: Effexor XR 75 MG PO SCH (22:00)
[2023-09-09] MEDS ORDERED: Zanaflex 4 MG PO SCH (22:00)
[2023-09-09] MEDS ORDERED: TOPIRAMATE 100 MG PO SCH (22:00)
[2023-09-09] MEDS ORDERED: Zanaflex 4 MG ONE (22:03)
[2023-09-09] MEDS: TOPIRAMATE PO SCH (22:13)
[2023-09-10 04:44] LABS: BASOPHIL % 0.3 % (0.0-0.4); Basophil (Absolute #) 0.02 x10^3/uL (0-0.4); Eosinophil (Absolute #) 0 x10^3/uL (0-0.5); Hemoglobin 13.4 g/dL (12.0-16.0); IMMATURE GRAN # 0.02 x10^3u/L (0.00-0.03); IMMATURE GRAN % 0.3 % (0.00-0.4); Lymphocyte (Absolute #) 0.66 x10^3/uL (1.0-4.6); Lymphocytes % 10.5 % (24.0-44.0); Mean Cell Volume 95.6 fL (78-100); Mean Corpuscular Hemoglobin 32.8 pg (26-32); Mean Corpuscular Hgb Concent. 34.4 g/dL (32-36); Mean Platelet Volume 11.5 fL (7.5-11.0); Monocyte (Absolute #) 0.17 x10^3/uL (0.0-1.3); Monocytes % 2.7 % (0.0-12.0); Neutrophil % 86.2 % (36.0-66.0); Platelet Count 239 x10^3/uL (150-450); Red Blood Count 4.08 x10^6/uL (4.1-5.4); Red Cell Distribution Width 12.5 % (11.5-14.0); White Blood Count 6.3 x10^3/uL (4.0-10.5)
[2023-09-10 05:14] LABS: BILIRUBIN,TOTAL 0.6 mg/dL (0.2-1.3); Calcium 9.1 mg/dL (8.4-10.2); Creatinine 1 0.54 mg/dL (0.52-1.04); EST GLOMERULAR FILTRATION RATE 117.1 ML/MIN; Potassium 3.9 mmol/L (3.5-5.1)
[2023-09-10 05:15] LABS: ANION GAP 10.3 MEQ/L (5-15)
[2023-09-10] MEDS ORDERED: Oxy-IR 5 MG PO PRN (06:39)
[2023-09-10 07:30] VITALS: RESP 16; TEMP 97
--- NOTE | 2023-09-10 08:06 | PCM.CONS ---
Podiatry HPI - Consult Date of Consultation Date: 09/10/23 Reason for Consult: Left ankle strain Consulting Provider: JESSICA ALFRED DPM - [facility] History of Present Illness: is a 43 year old female. Medications & Allergies Home Medications: Home Medication List Venlafaxine HCl [Venlafaxine HCl ER] 150 mg PO HS 02/07/21 [History Confirmed 09/09/23] hydrOXYzine HCL [Hydroxyzine HCl] 10 mg PO BID 02/07/21 [History Confirmed 09/09/23] Atorvastatin Calcium 10 mg PO HS 04/15/21 [History Confirmed 09/09/23] Ergocalciferol (Vitamin D2) [Vitamin D2] 1 cap PO DAILY 04/15/21 [History Confirmed 09/09/23] Oxycodone HCl 5 mg Ir [Oxy-IR 5 MG] 5 mg PO TID PRN 09/09/23 [History Confirmed 09/09/23] Pregabalin 50 mg [Lyrica 50MG] 50 mg PO BID 09/09/23 [History Confirmed 09/09/23] Tizanidine HCl 4 mg [Zanaflex 4 MG] 4 mg PO DAILY PRN 09/09/23 [History Confirmed 09/09/23] Tizanidine HCl 4 mg [Zanaflex 4 MG] 8 mg PO HS 09/09/23 [History Confirmed 09/09/23] Topiramate 100 mg PO BID 09/09/23 [History Confirmed 09/09/23] Allergies/Adverse Reactions: Allergies Allergy/AdvReac Type Severity Reaction Status Date / Time penicillin G Allergy Intermediate Hives Verified 09/09/23 16:48 adhesive tape Allergy Verified 09/09/23 16:48 tramadol Allergy Verified 09/09/23 16:48 - Past Medical History Past Medical History: Yes Neurological History: No Pertinent History ENT History: No Pertinent History Cardiac History: Arrhythmia Respiratory History: Asthma Endocrine Medical History: Diabetes Type II Musculoskelatal History: Arthritis GI Medical History: Irritable Bowel History: No Pertinent History Pyscho-Social History: Bipolar, Depression Reproductive Disorders: No Pertinent History Comment: POLYCISTIC OVARY - Female History Hx Last Menstrual Period: tubal and ablsion Are you now?: No - Past Surgical History Past Surgical History: Yes Neuro Surgical History: No Pertinent History Cardiac History: No Pertinent History Respiratory Surgery: No Pertinent History GI Surgical History: No Pertinent History Musculskeletal Surgical Hx: Orthopedic Surgery Female Surgical History: Dilation & Curettage, Section, Tubal Ligation, Other Other Surgical History: right shoulder muscle surgery, uterine ablation - Social History Smoking Status: Current every day smoker How long have you smoked: YRS Exposure to second hand smoke: Yes Alcohol: None Drug Use: none Physical Exam - Narrative Narrative Physical Exam: Podiatry Physical Exam Results - Labs Lab/Micro Results: Lab Results-Last 24 Hours 09/09/23 09/09/23 09/09/23 Range/Units 14:26 14:26 14:26 WBC 6.6 (4.0-10.5) x10^3/uL RBC 4.34 (4.1-5.4) x10^6/uL Hgb 14.2 (12.0-16.0) g/dL Hct 42.2 (35-47) % MCV 97.2 (78-100) fL MCH 32.7 H (26-32) pg MCHC 33.6 (32-36) g/dL RDW 12.4 (11.5-14.0) % Plt Count 231 (150-450) x10^3/uL MPV 11.1 H (7.5-11.0) fL Gran % 64.9 (36.0-66.0) % Immature Gran % (Auto) 0.3 (0.00-0.4) % Nucleat RBC Rel Count 0.0 (0.00-0.1) % Eos # (Auto) 0.06 (0-0.5) x10^3/uL Immature Gran # (Auto) 0.02 (0.00-0.03) x10^3u/L Absolute Lymphs (auto) 1.55 (1.0-4.6) x10^3/uL Absolute Monos (auto) 0.61 (0.0-1.3) x10^3/uL Absolute Nucleated RBC 0.00 (0.00-0.01) x10^3u/L Lymphocytes % 23.5 L (24.0-44.0) % Monocytes % 9.2 (0.0-12.0) % Eosinophils % 0.9 (0.00-5.0) % Basophils % 1.2 (0.0-0.4) % Absolute Granulocytes 4.28 (1.4-6.9) x10^3/uL Basophils # 0.08 (0-0.4) x10^3/uL ESR (0-20) mm/hr D-Dimer < 0.19 (0.0-0.50) mg/L Sodium 135 L (137-145) mmol/L Potassium 3.8 (3.5-5.1) mmol/L Chloride 107 (98-107) mmol/L Carbon Dioxide 22 (22-30) mmol/L Anion Gap 10.2 (5-15) MEQ/L BUN 7 (7-17) mg/dL Creatinine 0.61 (0.52-1.04) mg/dL Estimated GFR 113.7 ML/MIN Glucose 105 (74-106) mg/dL Uric Acid (2.6-6.0) mg/dL Calcium 9.0 (8.4-10.2) mg/dL Total Bilirubin 0.80 (0.2-1.3) mg/dL AST 18 (14-36) U/L ALT 12 (0-35) U/L Alkaline Phosphatase 64 (38-126) U/L Troponin I 0.012 (0.000-0.034) ng/mL Serum Total Protein 7.0 (6.3-8.2) g/dL Albumin 4.2 (3.5-5.0) g/dL 09/09/23 09/09/23 09/09/23 Range/Units 18:00 18:00 18:00 WBC (4.0-10.5) x10^3/uL RBC (4.1-5.4) x10^6/uL Hgb (12.0-16.0) g/dL Hct (35-47) % MCV (78-100) fL MCH (26-32) pg MCHC (32-36) g/dL RDW (11.5-14.0) % Plt Count (150-450) x10^3/uL MPV (7.5-11.0) fL Gran % (36.0-66.0) % Immature Gran % (Auto) (0.00-0.4) % Nucleat RBC Rel Count (0.00-0.1) % Eos # (Auto) (0-0.5) x10^3/uL Immature Gran # (Auto) (0.00-0.03) x10^3u/L Absolute Lymphs (auto) (1.0-4.6) x10^3/uL Absolute Monos (auto) (0.0-1.3) x10^3/uL Absolute Nucleated RBC (0.00-0.01) x10^3u/L Lymphocytes % (24.0-44.0) % Monocytes % (0.0-12.0) % Eosinophils % (0.00-5.0) % Basophils % (0.0-0.4) % Absolute Granulocytes (1.4-6.9) x10^3/uL Basophils # (0-0.4) x10^3/uL ESR 3 (0-20) mm/hr D-Dimer (0.0-0.50) mg/L Sodium (137-145) mmol/L Potassium (3.5-5.1) mmol/L Chloride (98-107) mmol/L Carbon Dioxide (22-30) mmol/L Anion Gap (5-15) MEQ/L BUN (7-17) mg/dL Creatinine (0.52-1.04) mg/dL Estimated GFR ML/MIN Glucose (74-106) mg/dL Uric Acid 4.9 (2.6-6.0) mg/dL Calcium (8.4-10.2) mg/dL Total Bilirubin (0.2-1.3) mg/dL AST (14-36) U/L ALT (0-35) U/L Alkaline Phosphatase (38-126) U/L Troponin I 0.014 (0.000-0.034) ng/mL Serum Total Protein (6.3-8.2) g/dL Albumin (3.5-5.0) g/dL 09/09/23 09/10/23 09/10/23 Range/Units 22:05 04:29 04:29 WBC 6.3 (4.0-10.5) x10^3/uL RBC 4.08 L (4.1-5.4) x10^6/uL Hgb 13.4 (12.0-16.0) g/dL Hct 39.0 (35-47) % MCV 95.6 (78-100) fL MCH 32.8 H (26-32) pg MCHC 34.4 (32-36) g/dL RDW 12.5 (11.5-14.0) % Plt Count 239 (150-450) x10^3/uL MPV 11.5 H (7.5-11.0) fL Gran % 86.2 H (36.0-66.0) % Immature Gran % (Auto) 0.3 (0.00-0.4) % Nucleat RBC Rel Count 0.0 (0.00-0.1) % Eos # (Auto) 0 (0-0.5) x10^3/uL Immature Gran # (Auto) 0.02 (0.00-0.03) x10^3u/L Absolute Lymphs (auto) 0.66 L (1.0-4.6) x10^3/uL Absolute Monos (auto) 0.17 (0.0-1.3) x10^3/uL Absolute Nucleated RBC 0.00 (0.00-0.01) x10^3u/L Lymphocytes % 10.5 L (24.0-44.0) % Monocytes % 2.7 (0.0-12.0) % Eosinophils % 0.0 (0.00-5.0) % Basophils % 0.3 (0.0-0.4) % Absolute Granulocytes 5.40 (1.4-6.9) x10^3/uL Basophils # 0.02 (0-0.4) x10^3/uL ESR (0-20) mm/hr D-Dimer (0.0-0.50) mg/L Sodium 131 L (137-145) mmol/L Potassium 3.9 (3.5-5.1) mmol/L Chloride 106 (98-107) mmol/L Carbon Dioxide 19 L (22-30) mmol/L Anion Gap 10.3 (5-15) MEQ/L BUN 10 (7-17) mg/dL Creatinine 0.54 (0.52-1.04) mg/dL Estimated GFR 117.1 ML/MIN Glucose 144 H (74-106) mg/dL Uric Acid (2.6-6.0) mg/dL Calcium 9.1 (8.4-10.2) mg/dL Total Bilirubin 0.60 (0.2-1.3) mg/dL AST 17 (14-36) U/L ALT 11 (0-35) U/L Alkaline Phosphatase 61 (38-126) U/L Troponin I < 0.012 (0.000-0.034) ng/mL Serum Total Protein 7.0 (6.3-8.2) g/dL Albumin 4.0 (3.5-5.0) g/dL - Radiology Impressions Radiology Exams & Impressions: Radiology Procedures Category Date Time Status ANKLE (3 VIEWS) Stat Exams 09/09/23 13:04 Completed FEMUR Stat Exams 09/09/23 13:04 Completed FOOT (MINIMUM 3 VIEWS) Stat Exams 09/09/23 13:04 Completed HIP UNI (2V) INCL PEL IF DONE Stat Exams 09/09/23 13:04 Completed KNEE (1 OR 2 VIEW) Stat Exams 09/09/23 13:04 Completed LOWER LEG Stat Exams 09/09/23 13:05 Completed MRI LOW EXT JOINT W/O CONTRAST [MRI] Routine Exams 09/10/23 08:01 Ordered
--- NOTE | 2023-09-10 08:47 | PCM.NOTE ---
Date and Time: 09/10/23 0841 Subjective Assessment: Ms. Milian is a 43 year old female who presented with left foot and leg pain 09/09/23. XR of left knee/hip/foot/femur/ankle with no acute abnormalities. Podiatry consulted with recs for MRI of the left lower extremity. 09/10/23: Met with patient bedside. Endorses pain controlled with rest/pain regimen. Decli meaghan NSAIDs/Ice therapy, would like to continue on her home pain regimen. Plan for MRI LLE today as well as PT. Denies fever,cough, sob, cp, abdominal pain, CEDEÑO, dizziness, N/V/D. - Review of Systems Constitutional: Weakness Eyes: No Symptoms Ears, Nose, & Throat: No Symptoms Respiratory: No Symptoms Cardiac: No Symptoms Abdominal/Gastrointestinal: No Symptoms Genitourinary Symptoms: No Symptoms Musculoskeletal: Back Pain, Joint Pain (Left knee, hip, ankle with ambulation) Neurological: No Symptoms Psychological: No Symptoms Endocrine: No Symptoms Hematologic/Lymphatic: No Symptoms Immunological/Allergic: No Symptoms Objective Exam General Appearance: no apparent distress Neurologic Exam: alert, oriented x 3, cooperative Skin Exam: normal color Eye Exam: PERRL Ears, Nose, Throat Exam: normal ENT inspection Neck Exam: normal inspection Respiratory Exam: normal breath sounds, lungs clear Cardiovascular Exam: regular rate/rhythm, normal heart sounds Gastrointestinal/Abdomen Exam: soft, normal bowel sounds Extremity Exam: joint swelling (mild left ankle), limited range of motion (LLE, +left leg raise) Pelvic Exam: deferred Rectal Exam: deferred OBJECTIVE DATA Vital Signs: Vital Signs - 24 hr Temp Pulse Resp BP BP Pulse Ox 09/10/23 07:29 97.0 F 64 16 125/65 95 09/10/23 04:00 96.9 F 68 18 122/64 96 09/10/23 00:00 97.0 F 66 18 94/56 98 09/09/23 20:00 96.8 F 74 18 122/60 100 09/09/23 16:04 97.6 F 88 20 136/88 98 09/09/23 15:41 98 09/09/23 13:12 67 118/78 98 09/09/23 13:00 147/90 96 09/09/23 12:59 98.0 F 74 18 147/90 98 Pain Assessment - Last Documented Pain Intensity 2 Pain Scale Used 0-10 Pain Scale Intake and Output: Intake & Output 09/07/23 09/08/23 09/09/23 09/10/23 11:59 11:59 11:59 11:59 Intake Total 980 Balance 980 Weight 97.5 kg Lab Results: Lab Results-Last 24 Hours 09/09/23 09/09/23 09/09/23 Range/Units 14:26 14:26 14:26 WBC 6.6 (4.0-10.5) x10^3/uL RBC 4.34 (4.1-5.4) x10^6/uL Hgb 14.2 (12.0-16.0) g/dL Hct 42.2 (35-47) % MCV 97.2 (78-100) fL MCH 32.7 H (26-32) pg MCHC 33.6 (32-36) g/dL RDW 12.4 (11.5-14.0) % Plt Count 231 (150-450) x10^3/uL MPV 11.1 H (7.5-11.0) fL Gran % 64.9 (36.0-66.0) % Immature Gran % (Auto) 0.3 (0.00-0.4) % Nucleat RBC Rel Count 0.0 (0.00-0.1) % Eos # (Auto) 0.06 (0-0.5) x10^3/uL Immature Gran # (Auto) 0.02 (0.00-0.03) x10^3u/L Absolute Lymphs (auto) 1.55 (1.0-4.6) x10^3/uL Absolute Monos (auto) 0.61 (0.0-1.3) x10^3/uL Absolute Nucleated RBC 0.00 (0.00-0.01) x10^3u/L Lymphocytes % 23.5 L (24.0-44.0) % Monocytes % 9.2 (0.0-12.0) % Eosinophils % 0.9 (0.00-5.0) % Basophils % 1.2 (0.0-0.4) % Absolute Granulocytes 4.28 (1.4-6.9) x10^3/uL Basophils # 0.08 (0-0.4) x10^3/uL ESR (0-20) mm/hr D-Dimer < 0.19 (0.0-0.50) mg/L Sodium 135 L (137-145) mmol/L Potassium 3.8 (3.5-5.1) mmol/L Chloride 107 (98-107) mmol/L Carbon Dioxide 22 (22-30) mmol/L Anion Gap 10.2 (5-15) MEQ/L BUN 7 (7-17) mg/dL Creatinine 0.61 (0.52-1.04) mg/dL Estimated GFR 113.7 ML/MIN Glucose 105 (74-106) mg/dL Uric Acid (2.6-6.0) mg/dL Calcium 9.0 (8.4-10.2) mg/dL Total Bilirubin 0.80 (0.2-1.3) mg/dL AST 18 (14-36) U/L ALT 12 (0-35) U/L Alkaline Phosphatase 64 (38-126) U/L Troponin I 0.012 (0.000-0.034) ng/mL Serum Total Protein 7.0 (6.3-8.2) g/dL Albumin 4.2 (3.5-5.0) g/dL 09/09/23 09/09/23 09/09/23 Range/Units 18:00 18:00 18:00 WBC (4.0-10.5) x10^3/uL RBC (4.1-5.4) x10^6/uL Hgb (12.0-16.0) g/dL Hct (35-47) % MCV (78-100) fL MCH (26-32) pg MCHC (32-36) g/dL RDW (11.5-14.0) % Plt Count (150-450) x10^3/uL MPV (7.5-11.0) fL Gran % (36.0-66.0) % Immature Gran % (Auto) (0.00-0.4) % Nucleat RBC Rel Count (0.00-0.1) % Eos # (Auto) (0-0.5) x10^3/uL Immature Gran # (Auto) (0.00-0.03) x10^3u/L Absolute Lymphs (auto) (1.0-4.6) x10^3/uL Absolute Monos (auto) (0.0-1.3) x10^3/uL Absolute Nucleated RBC (0.00-0.01) x10^3u/L Lymphocytes % (24.0-44.0) % Monocytes % (0.0-12.0) % Eosinophils % (0.00-5.0) % Basophils % (0.0-0.4) % Absolute Granulocytes (1.4-6.9) x10^3/uL Basophils # (0-0.4) x10^3/uL ESR 3 (0-20) mm/hr D-Dimer (0.0-0.50) mg/L Sodium (137-145) mmol/L Potassium (3.5-5.1) mmol/L Chloride (98-107) mmol/L Carbon Dioxide (22-30) mmol/L Anion Gap (5-15) MEQ/L BUN (7-17) mg/dL Creatinine (0.52-1.04) mg/dL Estimated GFR ML/MIN Glucose (74-106) mg/dL Uric Acid 4.9 (2.6-6.0) mg/dL Calcium (8.4-10.2) mg/dL Total Bilirubin (0.2-1.3) mg/dL AST (14-36) U/L ALT (0-35) U/L Alkaline Phosphatase (38-126) U/L Troponin I 0.014 (0.000-0.034) ng/mL Serum Total Protein (6.3-8.2) g/dL Albumin (3.5-5.0) g/dL 09/09/23 09/10/23 09/10/23 Range/Units 22:05 04:29 04:29 WBC 6.3 (4.0-10.5) x10^3/uL RBC 4.08 L (4.1-5.4) x10^6/uL Hgb 13.4 (12.0-16.0) g/dL Hct 39.0 (35-47) % MCV 95.6 (78-100) fL MCH 32.8 H (26-32) pg MCHC 34.4 (32-36) g/dL RDW 12.5 (11.5-14.0) % Plt Count 239 (150-450) x10^3/uL MPV 11.5 H (7.5-11.0) fL Gran % 86.2 H (36.0-66.0) % Immature Gran % (Auto) 0.3 (0.00-0.4) % Nucleat RBC Rel Count 0.0 (0.00-0.1) % Eos # (Auto) 0 (0-0.5) x10^3/uL Immature Gran # (Auto) 0.02 (0.00-0.03) x10^3u/L Absolute Lymphs (auto) 0.66 L (1.0-4.6) x10^3/uL Absolute Monos (auto) 0.17 (0.0-1.3) x10^3/uL Absolute Nucleated RBC 0.00 (0.00-0.01) x10^3u/L Lymphocytes % 10.5 L (24.0-44.0) % Monocytes % 2.7 (0.0-12.0) % Eosinophils % 0.0 (0.00-5.0) % Basophils % 0.3 (0.0-0.4) % Absolute Granulocytes 5.40 (1.4-6.9) x10^3/uL Basophils # 0.02 (0-0.4) x10^3/uL ESR (0-20) mm/hr D-Dimer (0.0-0.50) mg/L Sodium 131 L (137-145) mmol/L Potassium 3.9 (3.5-5.1) mmol/L Chloride 106 (98-107) mmol/L Carbon Dioxide 19 L (22-30) mmol/L Anion Gap 10.3 (5-15) MEQ/L BUN 10 (7-17) mg/dL Creatinine 0.54 (0.52-1.04) mg/dL Estimated GFR 117.1 ML/MIN Glucose 144 H (74-106) mg/dL Uric Acid (2.6-6.0) mg/dL Calcium 9.1 (8.4-10.2) mg/dL Total Bilirubin 0.60 (0.2-1.3) mg/dL AST 17 (14-36) U/L ALT 11 (0-35) U/L Alkaline Phosphatase 61 (38-126) U/L Troponin I < 0.012 (0.000-0.034) ng/mL Serum Total Protein 7.0 (6.3-8.2) g/dL Albumin 4.0 (3.5-5.0) g/dL Radiology Exams: Radiology Procedures Category Date Time Status ANKLE (3 VIEWS) Stat Exams 09/09/23 13:04 Completed FEMUR Stat Exams 09/09/23 13:04 Completed FOOT (MINIMUM 3 VIEWS) Stat Exams 09/09/23 13:04 Completed HIP UNI (2V) INCL PEL IF DONE Stat Exams 09/09/23 13:04 Completed KNEE (1 OR 2 VIEW) Stat Exams 09/09/23 13:04 Completed LOWER LEG Stat Exams 09/09/23 13:05 Completed MRI LOW EXT JOINT W/O CONTRAST [MRI] Routine Exams 09/10/23 08:01 Ordered MRI LOW EXT JOINT W/O CONTRAST [MRI] Routine Exams 09/10/23 08:01 Stop Req Assessment/Plan (1) Sprain of left foot Current Visit: Yes Status: Acute Qualifiers: Encounter type: initial encounter Qualified Code(s): S93.602A - Unspecified sprain of left foot, initial encounter Assessment & Plan: -local cold therapy - patient declines states it makes her pain worse -Rest/elevation -PT -NSAID -pt declines, would like to take her home pain medications -Ortho consult 09/10: -Podiatry consult with recs for MRI, plan pending results -Continue current pain regimen -PT Code(s): S93.602A - UNSPECIFIED SPRAIN OF LEFT FOOT, INITIAL ENCOUNTER (2) Diabetes mellitus Current Visit: Yes Status: Acute Assessment & Plan: -Controlled by diet -Will monitor while IP Code(s): E11.9 - TYPE 2 DIABETES MELLITUS WITHOUT COMPLICATIONS (3) Physical deconditioning Current Visit: Yes Status: Acute Assessment & Plan: -PT/OT Code(s): R53.81 - OTHER MALAISE (4) HTN (hypertension) Current Visit: Yes Status: Acute Assessment & Plan: -continue home medications Code(s): S93.602A - UNSPECIFIED SPRAIN OF LEFT FOOT, INITIAL ENCOUNTER (2) Diabetes mellitus Current Visit: Yes Status: Acute Code(s): E11.9 - TYPE 2 DIABETES MELLITUS WITHOUT COMPLICATIONS (3) Physical deconditioning Current Visit: Yes Status: Acute Code(s): R53.81 - OTHER MALAISE (4) HTN (hypertension) Current Visit: Yes Status: Acute Code(s): I10 - ESSENTIAL (PRIMARY) HYPERTEN MARYANNE
[2023-09-10] MEDS: TOPIRAMATE PO SCH (09:44)
[2023-09-10] MEDS ORDERED: Effexor XR 75 MG PO SCH (10:00)
[2023-09-10] MEDS ORDERED: ATARAX 25 MG PO SCH (10:00)
--- NOTE | 2023-09-10 11:18 | PCM.DS ---
Discharge Summary Date of Admission: 09/09/23 16:36 Date of Discharge: 09/10/23 Admitting Physician: RAHUL BORREGO MD Consults: Consults on Case 09/09/23 17:47 Consult Ortho ROUTINE Primary Care Provider: MONICA NUNN MARZENA Allergies Allergies penicillin G Allergy (Intermediate, Verified 09/09/23 16:48) Hives adhesive tape Allergy (Verified 09/09/23 16:48) tramadol Allergy (Verified 09/09/23 16:48) Hospital Summary - Hospital Course Hospital Course: Ms. Milian is a 43 year old female who presented with left foot and leg pain 09/09/23. XR of left knee/hip/foot/femur/ankle with no acute abnormalities. Podiatry consulted with recs for MRI of the left lower extremity. MRI showing A nterior calcaneus demonstrates small focus of subcortical bone edema signal with possible fracture lines. Patient to discharge with walking boot per podiatry and follow up with pain management. CM to obtain walker for patient. Patient agreeable to plan. Discharge Note Follow Up: Ortho/Pain management Results pending: none Latest Assessment & Plan 1) Sprain of left foot/Fracture left calcaneus Current Visit: Yes Status: Acute Qualifiers: Encounter type: initial encounter Qualified Code(s): S93.602A - Unspecified sprain of left foot, initial encounter Assessment & Plan: -local cold therapy - patient declines states it makes her pain worse -Rest/elevation -PT -NSAID -pt declines, would like to take her home pain medications -Ortho consult 09/10: -Podiatry consult with recs for MRI showing possible left calcaneus fracture -Walking boot placed/ Per podiatry pt to follow up with pain management -Continue current pain regimen -PT Code(s): S93.602A - UNSPECIFIED SPRAIN OF LEFT FOOT, INITIAL ENCOUNTER (2) Diabetes mellitus Current Visit: Yes Status: Acute Assessment & Plan: -Controlled by diet -Will monitor while IP Code(s): E11.9 - TYPE 2 DIABETES MELLITUS WITHOUT COMPLICATIONS (3) Physical deconditioning Current Visit: Yes Status: Acute Assessment & Plan: -PT/OT Code(s): R53.81 - OTHER MALAISE (4) HTN (hypertension) Current Visit: Yes Status: Acute Assessment & Plan: -continue home medications I spent 35 minutes [id number] with the patient on the day of discharge performing discharge exam, discussing hospital stay and discharge instructions with patient and caregivers, preparation of discharge records, prescriptions & referral forms and addressing any questions/concerns the patient had as documented above. - Vitals & Intake/Output Vital Signs: Vital Signs Temperature 97.0 F 09/10/23 07:29 Pulse Rate 64 09/10/23 07:29 Respiratory Rate 16 09/10/23 07:29 Blood Pressure 125/65 09/10/23 07:29 O2 Sat by Pulse Oximetry 95 09/10/23 07:29 Intake & Output: Intake & Output 09/07/23 09/08/23 09/09/23 09/10/23 11:59 11:59 11:59 11:59 Intake Total 1580 Balance 1580 Weight 97.5 kg - Lab Result Diagrams: 09/10/23 04:29 09/10/23 04:29 Lab Results-Last 24 Hrs: Lab Results-Last 24 Hours 09/09/23 09/09/23 09/09/23 Range/Units 14:26 14:26 14:26 WBC 6.6 (4.0-10.5) x10^3/uL RBC 4.34 (4.1-5.4) x10^6/uL Hgb 14.2 (12.0-16.0) g/dL Hct 42.2 (35-47) % MCV 97.2 (78-100) fL MCH 32.7 H (26-32) pg MCHC 33.6 (32-36) g/dL RDW 12.4 (11.5-14.0) % Plt Count 231 (150-450) x10^3/uL MPV 11.1 H (7.5-11.0) fL Gran % 64.9 (36.0-66.0) % Immature Gran % (Auto) 0.3 (0.00-0.4) % Nucleat RBC Rel Count 0.0 (0.00-0.1) % Eos # (Auto) 0.06 (0-0.5) x10^3/uL Immature Gran # (Auto) 0.02 (0.00-0.03) x10^3u/L Absolute Lymphs (auto) 1.55 (1.0-4.6) x10^3/uL Absolute Monos (auto) 0.61 (0.0-1.3) x10^3/uL Absolute Nucleated RBC 0.00 (0.00-0.01) x10^3u/L Lymphocytes % 23.5 L (24.0-44.0) % Monocytes % 9.2 (0.0-12.0) % Eosinophils % 0.9 (0.00-5.0) % Basophils % 1.2 (0.0-0.4) % Absolute Granulocytes 4.28 (1.4-6.9) x10^3/uL Basophils # 0.08 (0-0.4) x10^3/uL ESR (0-20) mm/hr D-Dimer < 0.19 (0.0-0.50) mg/L Sodium 135 L (137-145) mmol/L Potassium 3.8 (3.5-5.1) mmol/L Chloride 107 (98-107) mmol/L Carbon Dioxide 22 (22-30) mmol/L Anion Gap 10.2 (5-15) MEQ/L BUN 7 (7-17) mg/dL Creatinine 0.61 (0.52-1.04) mg/dL Estimated GFR 113.7 ML/MIN Glucose 105 (74-106) mg/dL Uric Acid (2.6-6.0) mg/dL Calcium 9.0 (8.4-10.2) mg/dL Total Bilirubin 0.80 (0.2-1.3) mg/dL AST 18 (14-36) U/L ALT 12 (0-35) U/L Alkaline Phosphatase 64 (38-126) U/L Troponin I 0.012 (0.000-0.034) ng/mL Serum Total Protein 7.0 (6.3-8.2) g/dL Albumin 4.2 (3.5-5.0) g/dL 09/09/23 09/09/23 09/09/23 Range/Units 18:00 18:00 18:00 WBC (4.0-10.5) x10^3/uL RBC (4.1-5.4) x10^6/uL Hgb (12.0-16.0) g/dL Hct (35-47) % MCV (78-100) fL MCH (26-32) pg MCHC (32-36) g/dL RDW (11.5-14.0) % Plt Count (150-450) x10^3/uL MPV (7.5-11.0) fL Gran % (36.0-66.0) % Immature Gran % (Auto) (0.00-0.4) % Nucleat RBC Rel Count (0.00-0.1) % Eos # (Auto) (0-0.5) x10^3/uL Immature Gran # (Auto) (0.00-0.03) x10^3u/L Absolute Lymphs (auto) (1.0-4.6) x10^3/uL Absolute Monos (auto) (0.0-1.3) x10^3/uL Absolute Nucleated RBC (0.00-0.01) x10^3u/L Lymphocytes % (24.0-44.0) % Monocytes % (0.0-12.0) % Eosinophils % (0.00-5.0) % Basophils % (0.0-0.4) % Absolute Granulocytes (1.4-6.9) x10^3/uL Basophils # (0-0.4) x10^3/uL ESR 3 (0-20) mm/hr D-Dimer (0.0-0.50) mg/L Sodium (137-145) mmol/L Potassium (3.5-5.1) mmol/L Chloride (98-107) mmol/L Carbon Dioxide (22-30) mmol/L Anion Gap (5-15) MEQ/L BUN (7-17) mg/dL Creatinine (0.52-1.04) mg/dL Estimated GFR ML/MIN Glucose (74-106) mg/dL Uric Acid 4.9 (2.6-6.0) mg/dL Calcium (8.4-10.2) mg/dL Total Bilirubin (0.2-1.3) mg/dL AST (14-36) U/L ALT (0-35) U/L Alkaline Phosphatase (38-126) U/L Troponin I 0.014 (0.000-0.034) ng/mL Serum Total Protein (6.3-8.2) g/dL Albumin (3.5-5.0) g/dL 09/09/23 09/10/23 09/10/23 Range/Units 22:05 04:29 04:29 WBC 6.3 (4.0-10.5) x10^3/uL RBC 4.08 L (4.1-5.4) x10^6/uL Hgb 13.4 (12.0-16.0) g/dL Hct 39.0 (35-47) % MCV 95.6 (78-100) fL MCH 32.8 H (26-32) pg MCHC 34.4 (32-36) g/dL RDW 12.5 (11.5-14.0) % Plt Count 239 (150-450) x10^3/uL MPV 11.5 H (7.5-11.0) fL Gran % 86.2 H (36.0-66.0) % Immature Gran % (Auto) 0.3 (0.00-0.4) % Nucleat RBC Rel Count 0.0 (0.00-0.1) % Eos # (Auto) 0 (0-0.5) x10^3/uL Immature Gran # (Auto) 0.02 (0.00-0.03) x10^3u/L Absolute Lymphs (auto) 0.66 L (1.0-4.6) x10^3/uL Absolute Monos (auto) 0.17 (0.0-1.3) x10^3/uL Absolute Nucleated RBC 0.00 (0.00-0.01) x10^3u/L Lymphocytes % 10.5 L (24.0-44.0) % Monocytes % 2.7 (0.0-12.0) % Eosinophils % 0.0 (0.00-5.0) % Basophils % 0.3 (0.0-0.4) % Absolute Granulocytes 5.40 (1.4-6.9) x10^3/uL Basophils # 0.02 (0-0.4) x10^3/uL ESR (0-20) mm/hr D-Dimer (0.0-0.50) mg/L Sodium 131 L (137-145) mmol/L Potassium 3.9 (3.5-5.1) mmol/L Chloride 106 (98-107) mmol/L Carbon Dioxide 19 L (22-30) mmol/L Anion Gap 10.3 (5-15) MEQ/L BUN 10 (7-17) mg/dL Creatinine 0.54 (0.52-1.04) mg/dL Estimated GFR 117.1 ML/MIN Glucose 144 H (74-106) mg/dL Uric Acid (2.6-6.0) mg/dL Calcium 9.1 (8.4-10.2) mg/dL Total Bilirubin 0.60 (0.2-1.3) mg/dL AST 17 (14-36) U/L ALT 11 (0-35) U/L Alkaline Phosphatase 61 (38-126) U/L Troponin I < 0.012 (0.000-0.034) ng/mL Serum Total Protein 7.0 (6.3-8.2) g/dL Albumin 4.0 (3.5-5.0) g/dL - Radiology Exams Ordered Rad Exams-Entire Visit: Radiology Procedures Category Date Time Status ANKLE (3 VIEWS) Stat Exams 09/09/23 13:04 Completed FEMUR Stat Exams 09/09/23 13:04 Completed FOOT (MINIMUM 3 VIEWS) Stat Exams 09/09/23 13:04 Completed HIP UNI (2V) INCL PEL IF DONE Stat Exams 09/09/23 13:04 Completed KNEE (1 OR 2 VIEW) Stat Exams 09/09/23 13:04 Completed LOWER LEG Stat Exams 09/09/23 13:05 Completed MRI LOW EXT JOINT W/O CONTRAST [MRI] Routine Exams 09/10/23 08:01 Ordered - Procedures and Test Procedures and Tests throughout Hospitalization: Therapy Orders & Screens 09/09/23 16:45 PT Eval & Treat ( Order) ONCE Reason for Eval:: weakness/deconditioning Diagnosis: weakness OT Eval and Treat ( Order) ONCE Comment: Physician Instructions: Reason For Exam: deconditioning/weakness Diagnosis: weakness 09/10/23 08:00 OT Screen per Nursing Assess ONCE Comment: Protocol Order Physician Instructions: Greater than 3 points order OT Admission Screening Reason For Exam: Triggered on Admission Diagnosis: weakness Open Wound/Cellutlitis/Pressure Ulcers: No Acute Fx/ORIF/Change in wt bearing status: Yes Severe MUSCULOSKELETAL pain: No ADL Dysfunction: No Acute CVA w/Hemiparesis/Hemiplegia: No Decreased Functional Mobility/Strength: Yes Sprain/Strain: No Acute Post-op Mobility Dysfunction: No Total Points: 6 PT Screen per Nursing Assess ONCE Comment: Protocol Order Physician Instructions: Greater than 3 points order PT Admission Screenin Reason For Exam: Triggered on Admission Diagnosis: weakness Open Wound/Cellutlitis/Pressure Ulcers: No Acute Fx/ORIF/Change in wt bearing status: Yes Severe MUSCULOSKELETAL pain: No ADL Dysfunction: No Acute CVA w/Hemiparesis/Hemiplegia: No Decreased Functional Mobility/Strength: Yes Sprain/Strain: No Acute Post-op Mobility Dysfunction: No Total Points: 6 Smoking Cessation Education ONCE Comment: Diagnosis: weakness Smoking Status: Current every day smoker How long have you smoked: YRS Have you smoked in the past 12 months: Yes Approximately how many cigarettes per day: 10 Do you dip or chew tobacco: No Discharge Exam General Appearance: no apparent distress Neurologic Exam: alert, oriented x 3, cooperative Eye Exam: PERRL Ears, Nose, Throat Exam: normal ENT inspection Neck Exam: normal inspection Respiratory Exam: normal breath sounds, lungs clear Cardiovascular Exam: regular rate/rhythm, normal heart sounds Gastrointestinal/Abdomen Exam: soft, normal bowel sounds Pelvic Exam: deferred Rectal Exam: deferred Back Exam: normal inspection Extremity Exam: joint swelling (mild LLE), other (+LL raise, limited ROM to LLE) Skin Exam: normal color Final Diagnosis/Problem List - Final Discharge Diagnosis/Problem (1) Calcaneus fracture, left Current Visit: Yes Status: Acute Code(s): S92.002A - UNSP FRACTURE OF LEFT CALCANEUS, INIT FOR CLOS FX (2) Sprain of left foot Current Visit: Yes Status: Acute Code(s): S93.602A - UNSPECIFIED SPRAIN OF LEFT FOOT, INITIAL ENCOUNTER (3) Diabetes mellitus Current Visit: Yes Status: Chronic Code(s): E11.9 - TYPE 2 DIABETES MELLITUS WITHOUT COMPLICATIONS (4) Physical deconditioning Current Visit: Yes Status: Chronic Code(s): R53.81 - OTHER MALAISE (5) HTN (hypertension) Current Visit: Yes Status: Chronic Code(s): I10 - ESSENTIAL (PRIMARY) HYPERTENSION - Discharge Disposition: Home, Self-Care Condition: Stable Prescriptions: Continue Venlafaxine HCl [Venlafaxine HCl ER] 150 mg PO HS hydrOXYzine HCL [Hydroxyzine HCl] 10 mg PO BID Ergocalciferol (Vitamin D2) [Vitamin D2] 1 cap PO DAILY Atorvastatin Calcium 10 mg PO HS Topiramate 100 mg PO BID Tizanidine HCl 4 mg [Zanaflex 4 MG] 8 mg PO HS Tizanidine HCl 4 mg [Zanaflex 4 MG] 4 mg PO DAILY PRN PRN Reason: Muscle Spasms Oxycodone HCl 5 mg Ir [Oxy-IR 5 MG] 5 mg PO TID PRN PRN Reason: Pain Pregabalin 50 mg [Lyrica 50MG] 50 mg PO BID Follow up with: JESSICA ALFRED DPM [ACTIVE STAFF] - 09/24/23 9:00 am (IN TWO WEEKS) MONICA NUNN MD [Primary Care Provider] - 09/17/23 10:00 am BRIAN CAMPBELL I [NON-STAFF PHY W/O PRIVILEGES] - 09/13/23 9:30 am
[2023-09-10 12:00] VITALS: BP 125/71; PULSE 75; O2SAT 96
--- NOTE | 2023-09-10 14:01 | XRAY ---
Indication: Pain. Dislocation. Lisfranc injury. Normal left foot radiograph. MRI left foot performed without contrast using axial and coronal T1, T2, and STIR sequences. MRI could not be completed due to patient discomfort and inability to complete exam. Comparison: None Several images/sequences degraded by motion artifact. Visualized left foot/ankle articulation appears anatomic. Anterior calcaneus demonstrates small focus of subcortical bone edema signal with possible fracture lines. Elsewhere no acute fracture, dislocation, suspicious bony lesions, or abnormal bone marrow signal. Visualized soft tissues are negative for focal solid/cystic soft tissue mass or abnormal fluid collection. Impression: Limited MRI exam with motion artifact. Query acute cortical fracture anterior calcaneus.
--- NOTE | 2023-09-10 16:40 | PCM.CONS ---
Podiatry HPI - Consult Date of Consultation Date: 09/10/23 Reason for Consult: Ankle pain left Consulting Provider: JESSICA ALFRED DPM - [facility] History of Present Illness: 43yo f presents for left foot pain that started last night while she was walking around her house. Pt states the pain has worsened and she now is having pain in the left knee and left hip. Pt also believes her left foot is swollen compared to her right. Pt denies any recent trauma to the area, denies any hx of blood clots, denies any recent falls. Pt has reported hx of fibromyalgia and takes oxycodone for pain. Longstanding hx of lumbar pain. Medications & Allergies Home Medications: Home Medication List Venlafaxine HCl [Venlafaxine HCl ER] 150 mg PO HS 02/07/21 [History Confirmed 09/09/23] hydrOXYzine HCL [Hydroxyzine HCl] 10 mg PO BID 02/07/21 [History Confirmed 09/09/23] Atorvastatin Calcium 10 mg PO HS 04/15/21 [History Confirmed 09/09/23] Ergocalciferol (Vitamin D2) [Vitamin D2] 1 cap PO DAILY 04/15/21 [History Confirmed 09/09/23] Oxycodone HCl 5 mg Ir [Oxy-IR 5 MG] 5 mg PO TID PRN 09/09/23 [History Confirmed 09/09/23] Pregabalin 50 mg [Lyrica 50MG] 50 mg PO BID 09/09/23 [History Confirmed 09/09/23] Tizanidine HCl 4 mg [Zanaflex 4 MG] 4 mg PO DAILY PRN 09/09/23 [History Confirmed 09/09/23] Tizanidine HCl 4 mg [Zanaflex 4 MG] 8 mg PO HS 09/09/23 [History Confirmed 09/09/23] Topiramate 100 mg PO BID 09/09/23 [History Confirmed 09/09/23] Allergies/Adverse Reactions: Allergies Allergy/AdvReac Type Severity Reaction Status Date / Time penicillin G Allergy Intermediate Hives Verified 09/09/23 16:48 adhesive tape Allergy Verified 09/09/23 16:48 tramadol Allergy Verified 09/09/23 16:48 - Past Medical History Past Medical History: Yes Neurological History: No Pertinent History ENT History: No Pertinent History Cardiac History: Arrhythmia Respiratory History: Asthma Endocrine Medical History: Diabetes Type II Musculoskelatal History: Arthritis GI Medical History: Irritable Bowel History: No Pertinent History Pyscho-Social History: Bipolar, Depression Reproductive Disorders: No Pertinent History Comment: POLYCISTIC OVARY - Female History Hx Last Menstrual Period: tubal and ablsion Are you now?: No - Past Surgical History Past Surgical History: Yes Neuro Surgical History: No Pertinent History Cardiac History: No Pertinent History Respiratory Surgery: No Pertinent History GI Surgical History: No Pertinent History Musculskeletal Surgical Hx: Orthopedic Surgery Female Surgical History: Dilation & Curettage, Section, Tubal Ligation, Other Other Surgical History: right shoulder muscle surgery, uterine ablation - Social History Smoking Status: Current every day smoker How long have you smoked: YRS Exposure to second hand smoke: Yes Alcohol: None Drug Use: none Physical Exam - Neuro Neurologic: Epicritic and protopathic (intact. positive straight leg raise, braggards sign exquisite, austin's positive. Positive tinnels to all nerve distributions left lower extremity) - Vascular Peripheral Pulses: Posterior tibialis: 2+, Dorsalis-Pedis: 2+ Capillary Refill Time: < 3 seconds Hair Growth: Symmetrical and Bilateral Varicosities: Negtive Edema: None Skin: Supple, not atrophic - Narrative Narrative Physical Exam: Podiatry Physical Exam Results - Labs Lab/Micro Results: Lab Results-Last 24 Hours 09/09/23 09/09/23 09/09/23 Range/Units 18:00 18:00 18:00 WBC (4.0-10.5) x10^3/uL RBC (4.1-5.4) x10^6/uL Hgb (12.0-16.0) g/dL Hct (35-47) % MCV (78-100) fL MCH (26-32) pg MCHC (32-36) g/dL RDW (11.5-14.0) % Plt Count (150-450) x10^3/uL MPV (7.5-11.0) fL Gran % (36.0-66.0) % Immature Gran % (Auto) (0.00-0.4) % Nucleat RBC Rel Count (0.00-0.1) % Eos # (Auto) (0-0.5) x10^3/uL Immature Gran # (Auto) (0.00-0.03) x10^3u/L Absolute Lymphs (auto) (1.0-4.6) x10^3/uL Absolute Monos (auto) (0.0-1.3) x10^3/uL Absolute Nucleated RBC (0.00-0.01) x10^3u/L Lymphocytes % (24.0-44.0) % Monocytes % (0.0-12.0) % Eosinophils % (0.00-5.0) % Basophils % (0.0-0.4) % Absolute Granulocytes (1.4-6.9) x10^3/uL Basophils # (0-0.4) x10^3/uL ESR 3 (0-20) mm/hr Sodium (137-145) mmol/L Potassium (3.5-5.1) mmol/L Chloride (98-107) mmol/L Carbon Dioxide (22-30) mmol/L Anion Gap (5-15) MEQ/L BUN (7-17) mg/dL Creatinine (0.52-1.04) mg/dL Estimated GFR ML/MIN Glucose (74-106) mg/dL Uric Acid 4.9 (2.6-6.0) mg/dL Calcium (8.4-10.2) mg/dL Total Bilirubin (0.2-1.3) mg/dL AST (14-36) U/L ALT (0-35) U/L Alkaline Phosphatase (38-126) U/L Troponin I 0.014 (0.000-0.034) ng/mL Serum Total Protein (6.3-8.2) g/dL Albumin (3.5-5.0) g/dL 09/09/23 09/10/23 09/10/23 Range/Units 22:05 04:29 04:29 WBC 6.3 (4.0-10.5) x10^3/uL RBC 4.08 L (4.1-5.4) x10^6/uL Hgb 13.4 (12.0-16.0) g/dL Hct 39.0 (35-47) % MCV 95.6 (78-100) fL MCH 32.8 H (26-32) pg MCHC 34.4 (32-36) g/dL RDW 12.5 (11.5-14.0) % Plt Count 239 (150-450) x10^3/uL MPV 11.5 H (7.5-11.0) fL Gran % 86.2 H (36.0-66.0) % Immature Gran % (Auto) 0.3 (0.00-0.4) % Nucleat RBC Rel Count 0.0 (0.00-0.1) % Eos # (Auto) 0 (0-0.5) x10^3/uL Immature Gran # (Auto) 0.02 (0.00-0.03) x10^3u/L Absolute Lymphs (auto) 0.66 L (1.0-4.6) x10^3/uL Absolute Monos (auto) 0.17 (0.0-1.3) x10^3/uL Absolute Nucleated RBC 0.00 (0.00-0.01) x10^3u/L Lymphocytes % 10.5 L (24.0-44.0) % Monocytes % 2.7 (0.0-12.0) % Eosinophils % 0.0 (0.00-5.0) % Basophils % 0.3 (0.0-0.4) % Absolute Granulocytes 5.40 (1.4-6.9) x10^3/uL Basophils # 0.02 (0-0.4) x10^3/uL ESR (0-20) mm/hr Sodium 131 L (137-145) mmol/L Potassium 3.9 (3.5-5.1) mmol/L Chloride 106 (98-107) mmol/L Carbon Dioxide 19 L (22-30) mmol/L Anion Gap 10.3 (5-15) MEQ/L BUN 10 (7-17) mg/dL Creatinine 0.54 (0.52-1.04) mg/dL Estimated GFR 117.1 ML/MIN Glucose 144 H (74-106) mg/dL Uric Acid (2.6-6.0) mg/dL Calcium 9.1 (8.4-10.2) mg/dL Total Bilirubin 0.60 (0.2-1.3) mg/dL AST 17 (14-36) U/L ALT 11 (0-35) U/L Alkaline Phosphatase 61 (38-126) U/L Troponin I < 0.012 (0.000-0.034) ng/mL Serum Total Protein 7.0 (6.3-8.2) g/dL Albumin 4.0 (3.5-5.0) g/dL - Radiology Impressions Radiology Exams & Impressions: Radiology Procedures Category Date Time Status ANKLE (3 VIEWS) Stat Exams 09/09/23 13:04 Completed FEMUR Stat Exams 09/09/23 13:04 Completed FOOT (MINIMUM 3 VIEWS) Stat Exams 09/09/23 13:04 Completed HIP UNI (2V) INCL PEL IF DONE Stat Exams 09/09/23 13:04 Completed KNEE (1 OR 2 VIEW) Stat Exams 09/09/23 13:04 Completed LOWER LEG Stat Exams 09/09/23 13:05 Completed MRI LOW EXT JOINT W/O CONTRAST [MRI] Routine Exams 09/10/23 08:01 Completed Assessment/Plan (1) Lumbar back pain with radiculopathy affecting left lower extremity Status: Acute Assessment & Plan: Positive straight leg raise worsens with braggards manuver and positive uastin's likely pain associated with lumbar radiculopathy. Calcaneal fracture likely incidental finding or old. Code(s): M54.16 - RADICULOPATHY, LUMBAR REGION (2) Calcaneus fracture, left Status: Acute Assessment & Plan: Possible anterior process fracture, provided CAM boot Non surgical management recommended Will proceed with monitoring. Midfoot pain seems more in line with lumbar radiculopathy with referred pain. Highly recommend follow up with spine assessment secondary to possible referred pain. Code(s): S92.002A - UNSP FRACTURE OF LEFT CALCANEUS, INIT FOR CLOS FX (3) Sprain of left foot Status: Acute Qualifiers: Encounter type: initial encounter Qualified Code(s): S93.602A - Unspecified sprain of left foot, initial encounter Code(s): S93.602A - UNSPECIFIED SPRAIN OF LEFT FOOT, INITIAL ENCOUNTER (4) Diabetes mellitus Status: Chronic Code(s): E11.9 - TYPE 2 DIABETES MELLITUS WITHOUT COMPLICATIONS (5) HTN (hypertension) Status: Chronic Code(s): I10 - ESSENTIAL (PRIMARY) HYPERTENSION (6) Physical deconditioning Status: Chronic Code(s): R53.81 - OTHER MALAISE
[2023-09-11] MEDS ORDERED: VITAMIN D2 PO SCH (10:00)
== END 2023-09-10 15:55 | disposition home or self-care (01) ==
LOC: ED 12:58 → MED SURG 16:36
PROVIDERS: ADMIT Internal Medicine; ATTEND Internal Medicine
DX: S92.002A Unspecified fracture of left calcaneus, initial encounter for closed fracture (principal); S93.602A Unspecified sprain of left foot, initial encounter; E11.9 Type 2 diabetes mellitus without complications; R53.81 Other malaise; M54.16 Radiculopathy, lumbar region; I10 Essential (primary) hypertension; E78.5 Hyperlipidemia, unspecified; F17.200 Nicotine dependence, unspecified, uncomplicated; Z79.899 Other long term (current) drug therapy; Z20.828 Contact with and (suspected) exposure to other viral communicable diseases
CPT/HCPCS: 28400; 36000; 36415; 73502; 73552; 73560; 73590; 73610; 73630; 73721; 80053; 84484; 84550; 85025; 85379; 85652; 86140; 99233; 99285; G0378; Q3014; A9270-GY

== ENCOUNTER 2024-12-08 08:56 | Day surgery (SDC) | payer OTHER ==
--- NOTE | 2024-12-08 07:35 | HP ---
HISTORY AND PHYSICAL HISTORY OF PRESENT ILLNESS: Patient has had some heartburn, upper abdominal pain, some on the left, some on the right at times, some nausea and vomiting. CT scan shows some cholelithiasis. PAST MEDICAL HISTORY: Hypertension, asthma, reflux, fibromyalgia, gout, headaches, depression, hyperlipidemia, arthritis. HOME MEDICATIONS: Pregabalin, lido-prilocaine pack topical kit, triamcinolone topical cream, promethazine, tizanidine, venlafaxine, nitroglycerin, aspirin, oxycodone, metoprolol. ALLERGIES: Penicillin. PAST SURGICAL HISTORY: , laminectomy by Dr. Alba in 2020, back surgery, had a tubal in the past. SOCIAL HISTORY: Smoker. No alcohol abuse. FAMILY HISTORY: Cancer. REVIEW OF SYSTEMS: Twelve systems reviewed. No chest pain or palpitations. Pertinent for as noted above and per admission assessment, otherwise per History of Present Illness. PHYSICAL EXAMINATION: GENERAL: Height 5 feet 7 inches. BMI 33.20. No acute distress. HEENT: Sclerae anicteric. Extraocular movements intact. NECK: No JVD. CARDIOVASCULAR: Regular rate and rhythm. RESPIRATORY: Chest is clear. Nonlabored breathing. ABDOMEN: Soft. SKIN: Dry. EXTREMITIES: No cyanosis or edema. NEUROLOGIC: Alert and oriented. Moving extremities symmetrically. PSYCHIATRIC: Appropriate mood and affect. IMPRESSION: Acute exacerbation of chronic cholecystitis, symptomatic cholelithiasis. Recommend cholecystectomy. Shown the gallbladder pamphlet. Explained the risks in detail including but not limited to bleeding; infection; risk of trocar injury or hernia; risk of bowel, bladder, or blood vessel injury; risk bile leak, bile duct injury, retained stone or sludge possibly requiring further procedure, either open or ERCP; general risks of anesthesia, DVT, PE, pneumonia; perioperative risks of aches, pains, bloating, constipation, and/or loose stools possibly chronic in nature; possibility of no improvement in her symptoms possibly requiring further workup or studies, endoscopy or other studies or referrals. Will proceed with laparoscopic cholecystectomy, possible open, as an outpatient. Otherwise, continue medications for her asthma, depression, fibromyalgia, gout, hypertension, hyperlipidemia, and headaches.
[2024-12-08] MEDS ORDERED: Lactated Ringers 1,000 ML IV ONE (09:43)
[2024-12-08] MEDS: Levofloxacin 500MG/100ML D5W 500 MG/100 ML BAG IV SCH (09:45)
[2024-12-08] MEDS: CLINDAMYCIN-D5W 900 MG/50 ML*** 900 MG/50 ML BAG IV SCH (09:45)
[2024-12-08] MEDS: Lactated Ringers 1,000 ML IV SCH (09:45)
[2024-12-08 10:28] LABS: HCG SERUM TEST NEGATIVE (NEGATIVE)
[2024-12-08 10:48] LABS: ANION GAP 13.5 MEQ/L (5-15); Calcium 8.8 mg/dL (8.4-10.2); Creatinine 1 0.65 mg/dL (0.52-1.04); EST GLOMERULAR FILTRATION RATE 111.3 ML/MIN; Potassium 3.8 mmol/L (3.5-5.1)
[2024-12-08] MEDS ORDERED: Sodium Chloride 0.9% 1000 ML 1,000 ML ONE (11:04)
[2024-12-08] MEDS ORDERED: Sensorcaine 0.25% 10 ML ONE (11:04)
[2024-12-08] MEDS ORDERED: dexAMETHasone sodium phosphate ONE (11:59)
[2024-12-08] MEDS ORDERED: BRIDION 200MG/2ML IV ONE (11:59)
[2024-12-08] MEDS ORDERED: ROCURONIUM BROMIDE IV ONE (11:59)
[2024-12-08] MEDS ORDERED: propofoL IV ONE (11:59)
[2024-12-08] MEDS ORDERED: Zofran 4 MG/2 ML VIAL ONE (11:59)
[2024-12-08] MEDS ORDERED: SUBLIMAZE 100 MCG/2 ML ONE (11:59)
[2024-12-08 13:41] VITALS: RESP 16
[2024-12-08 13:49] VITALS: BP 121/78; PULSE 68; TEMP 97.6; O2SAT 98
--- NOTE | 2024-12-09 10:05 | OP ---
SURGERY DATE/TIME: 12/08/2024 [id number] PREOPERATIVE DIAGNOSIS: Acute exacerbation of chronic cholecystitis and symptomatic cholelithiasis. POSTOPERATIVE DIAGNOSIS: Acute exacerbation of chronic cholecystitis and symptomatic cholelithiasis. PROCEDURE: Laparoscopic cholecystectomy. SURGEON: Peter Drake MD ANESTHESIA: General. ESTIMATED BLOOD LOSS: Minimal. INDICATIONS: As noted above. The risks and benefits were explained in detail, not limited to. Consent obtained. DESCRIPTION OF PROCEDURE AND FINDINGS: The patient was taken to the operating room. General anesthesia was induced. She was prepped and draped in the usual sterile fashion. After official time-out, no disagreement in planned procedure, a transverse incision was made at the supraumbilical area. Fascia grasped and pulled upward. Veress needle inserted. Tested with saline. Due to her obesity, it was necessary to use a longer Veress needle, but insufflation was accomplished with an opening pressure of 0-15. A 5 mm bladeless port and camera inserted without difficulty, followed by two 5 mm right upper quadrant ports and an 11 mm epigastric port. Gallbladder was grasped, retracted to the edge of the liver in line with Calot triangle and dissected, and dissection was carried posterolateral to anterior fashion. Slowly and carefully, the cystic duct/infundibular junction slowly and carefully well skeletonized until the critical view was obtained both anteriorly and posteriorly. Once this was accomplished, the cystic duct and cystic artery clipped x3 and divided in usual fashion. The gallbladder was slowly and carefully dissected free from its dense attachments to the liver bed, clipping additional oozing side branches off the cystic artery/cystic vein directly on the gallbladder wall as necessary. Just prior to releasing the final attachments to the anterior edge of the liver, there was a little bit of oozing on the anterior edge of the liver, required some pinpoint cautery. Appeared to have adequate hemostasis, but a small piece of Surgicel was left in that position. Gallbladder was released from the final attachments to the anterior edge of the liver, placed in the bag, and pulled up and out of the epigastric wound where a clamp slightly spread the fascia allowing the top of the gallbladder to be pulled up. It was opened outside the abdomen, stayed in the bag, decompressed of bile and multiple large stones removed from the gallbladder, allowing the gallbladder and bag to be pulled free and passed off. This 11 mm fascial defect was closed with puncture closure device and #1 Vicryl. Copious amount of irrigation accomplished lateral to the liver and subhepatic space irrigated clear. Put a small piece of Surgicel and appeared to have good hemostasis and no signs of any active bleeding at that site. The irrigation was clear. It was felt there was no benefit for drain placement. At this point, pneumoperitoneum was decompressed. Wounds irrigated out. Skin incisions closed with 4-0 Vicryl, and 0.25% Marcaine local injected along each skin incision and fascial defect. Patient tolerated the procedure well. There were no immediate complications. I went to see if there was family to discuss the findings with out in the waiting area.
== END 2024-12-08 14:10 | disposition home or self-care (01) ==
LOC: SDC 08:56
PROVIDERS: ATTEND Surgery
DX: K80.10 Calculus of gallbladder with chronic cholecystitis without obstruction (principal)
CPT/HCPCS: 36415; 80048; 84703; J1100; J1956; J2405; J2704; J3010